=== PATIENT | female | born 1945 | race Caucasian/White ===

== ENCOUNTER 2020-01-17 04:51 | Emergency (ER) | payer MEDICARE, SELFPAY ==
[2020-01-17 05:00] VITALS: BP 148/85; PULSE 93; RESP 18; TEMP 36.7; O2SAT 98
--- NOTE | 2020-01-17 05:05 | ED.NECK ---
HPI - Neck Pain/Injury General Chief Complaint: Neck Pain/Injury Stated Complaint: neck pain Time Seen by Provider: 01/17/20 05:00 Source: patient and old records reviewed Mode of arrival: ambulatory Limitations: no limitations History of Present Illness HPI Narrative: Patient is a 74-year-old female who presents to the emergency department with complaints of right-sided neck pain. Patient states she had onset of symptoms when getting up out of her recliner yesterday evening. Patient describes it as a spasm and it is worse with movement. She tried taking Aleve at home without much relief. Patient denies any known trauma. She specifically denies any activities where she was holding her head to the side or looking in a downward position. Patient had not been sleeping in her recliner, just simply watching television. Patient denies any other symptoms aside from chronic cough and shortness of breath which she has had for some time. Patient is being treated for recurrence of lung cancer. complaint: neck pain Onset (ago): hour(s) Place: home Radiation: right lateral Quality: spasming Exacerbating factors: movement of neck Associated symptoms: none Treatments prior to arrival: naproxen Related Data Allergies Allergy/AdvReac Type Severity Reaction Status Date / Time No Known Allergies Allergy Unverified 12/08/19 15:47 Review of Systems Review of Systems: All systems reviewed & are unremarkable except as noted in HPI and below Constitutional: Constitutional: Denies fever(s) Cardiovascular: Cardiovascular: Denies chest pain Respiratory: Respiratory: Reports cough and Reports dyspnea PMFSH Past Medical History Medical History (Updated 01/17/20 @ 05:59 by Kandy Feldman MD) Hyperlipidemia Hypertension Recurrent adenocarcinoma of right lung Surgical History Surgical History (Updated 01/17/20 @ 05:18 by Kandy Feldman MD) History of lobectomy of lung Right lower lobe History of total left knee replacement Family History Family History (Updated 06/18/18 @ 11:12 by DOCTOR UNKNOWN) Mother Patient's mother is in good health Father Malignant neoplasm of prostate Social History Social History Smoking status: Never smoker Alcohol intake: current Gender identity (if verbalized by the patient): Female Exam Const: General: cooperative, no acute distress and alert Nutritional Appearance: well nourished Orientation/consciousness: patient oriented x3 Limitations: no limitations HENMT: Mouth: Yes lip normal and Yes moist mucous membranes Resp: Effort & Inspection: normal respiratory effort Auscultation: clear to auscultation bilaterally Cardio: Rate: regular rate Rhythm: regular rhythm Back/Spine/Pelvis: Cervical Spine: cervical muscular tenderness (Right paraspinal muscles), pain with cervical ROM, cervical spasm and cervical ROM abnormal (Limited ability to turn head, particularly towards the left) Skin: General skin exam: normal color Neuro: General: patient oriented x3 Cognition (Neuro): normal cognition Speech: normal speech Extrem: General: normal to inspection, full ROM and no clubbing, cyanosis or edema Psych: Mental Status: mental status grossly normal Affect: normal affect Attitude: cooperative Course Course Emergency Course: Patient given Valium in the ED. Will discharge home with short course of muscle relaxer to take as needed. Advised primary care follow-up Vital Signs Vital signs: Vital Signs Temperature 98.1 F 01/17/20 05:00 Pulse Rate 93 01/17/20 05:00 Respiratory Rate 18 01/17/20 05:00 Blood Pressure 148/85 H 01/17/20 05:00 Pulse Oximetry 98 01/17/20 05:00 Temperature 98.1 F 01/17/20 05:00 Pulse Rate 93 01/17/20 05:00 Respiratory Rate 18 01/17/20 05:00 Blood Pressure 148/85 H 01/17/20 05:00 Pulse Oximetry 98 01/17/20 05:00 Critical Care Time Critical Care Time Critical Care Time: No Discharge Plan Disch
[2020-01-17 06:10] VITALS: BP 132/77; PULSE 72; RESP 18; O2SAT 98
== END 2020-01-17 06:10 | disposition home or self-care (01) ==
PROVIDERS: Emergency Provider Emergency Medicine; PCP Internal Medicine
DX: M62.838 Other muscle spasm (principal); C34.91 Malignant neoplasm of unspecified part of right bronchus or lung; E78.5 Hyperlipidemia, unspecified; I10 Essential (primary) hypertension; Z90.2 Acquired absence of lung [part of]; Z96.652 Presence of left artificial knee joint
CPT/HCPCS: 96372; 99283; J3360

== ENCOUNTER 2020-05-15 17:36 | Emergency (ER) | payer MEDICARE, SELFPAY ==
[2020-05-15] VITALS (11 sets, daily range): BP systolic 122–172; BP diastolic 57–94; PULSE 86–90; RESP 18–31; TEMP 36.8–37.1; O2SAT 94–99
--- NOTE | ~2020-05-15 | CT_ITS ---
EXAMINATION: CTA chest PE protocol DATE: 05/15/2020 18:40 INDICATION: Right-sided chest pain. Shortness of breath. TECHNIQUE: Computed tomography angiography (CTA) of the chest was performed with 100 mL Omnipaque-350 intravenous contrast timed to evaluate the pulmonary arteries. Coronal maximum intensity projection 3D-reconstructions were created by the technologist. Automated exposure control and iterative reconst ruction technique were employed. Exam dose: 357.67 mGy-cm total exam DLP. COMPARISON: 10/14/2010 2 view chest FINDINGS: There is a huge irregular mass density involving the right lower lobe, extending to the rig ht upper lobe and right hilum, invading the main right pulmonary artery, middle lobe artery, largely occluding the right lower lobe pulmonary artery, with minimal pulmonary artery flow to the right lowe r lobe. There are innumerable satellite pulmonary nodules around the periphery of this huge mass as w ell as multiple left lung metastatic nodules measuring up to 1.8 cm. Normal heart size. No pericardial effusion. No pleural effusion is evident. No pneumothorax. Normal morphology of the adrenal glands. Multiple hepatic metastatic lesions are suggested. Moderate size hiatal hernia. Degenerative changes of the thoracic and lumbar spine. No suspicious osteolytic or osteoblastic lesio ns are noted. IMPRESSION: Huge malignant right lung mass involving right upper and particularly right lower lobe, with hilar invasion, main right pulmonary artery and right lower and middle lobe pulmonary artery inv asion, extensive right and left lung metastases Reviewed, dictated and finalized at [facility]. Reviewed, dictated and finalized at [facility]. IMPRESSION: Huge malignant right lung mass involving right upper and particula rly right lower lobe, with hilar invasion, main right pulmonary artery and righ t lower and middle lobe pulmonary artery invasion, extensive right and left mingo g metastases
--- NOTE | 2020-05-15 17:38 | ECG_ITS ---
Measurements Intervals [place] Rate: 84 P: 21 CT: 138 QRS: -8 QRSD: 90 T: 17 QT: 345 QTc: 410 Interpretive Statements SINUS RHYTHM VOLTAGE CRITERIA FOR LVH BASELINE ARTIFACT- I, II, AVR, V2 BORDERLINE ECG Electronically Signed On 05-16-2020 7:49:05 CDT by Art Lockwood D.O.
[2020-05-15 18:08] LABS: Basophils Percent Auto 0.3 % (0.2-1.2); Eosinophils Percent Auto 0.1 % (0-4.4); Hematocrit 26.5 % (37.0-47.0); Hemoglobin 8.7 g/dL (12.0-15.0); Immature Granulocyte Absolute 0.12 K/mm3 (0.00-0.031); Immature Granulocyte Percent A 1.8 % (0-0.5); Immature Platelet Fraction Pct 5.6 % (0.9-11.2); Lymphocytes Absolute Auto 0.88 K/mm3 (0.9-3.2); Lymphocytes Percent Auto 13.2 % (18.3-44.2); Mean Corpuscular HGB Conc 32.8 g/dl (32-36); Mean Corpuscular Hemoglobin 31.3 pg (26-34); Mean Corpuscular Volume 95.3 fl (80-100); Monocytes Absolute Auto 0.2 K/mm3 (0.1-0.6); Monocytes Percent Auto 3.3 % (2.6-8.5); Neutrophils Absolute Auto 5.4 K/mm3 (1.3-6.7); Neutrophils Percent Auto 81.3 % (45.5-73.1); Nucleated Red Blood Cells Absolute Auto 0.1 K/mm3 (0.0-0.012); Nucleated Red Blood Cells Perc 0.7 % (0.0-0.2); Red Blood Count 2.78 M/mm3 (4.2-5.4); White Blood Count 6.7 K/mm3 (4.5-10.0)
[2020-05-15 18:19] LABS: Anion Gap 7 mmol/L (8-16); Blood Urea Nitrogen 28 mg/dL (7-17); Calcium 9.4 mg/dL (8.4-10.2); Carbon Dioxide 26 mmol/L (22-30); Chloride 99 mmol/L (98-107); Estimated CRCL calculation 54 ml/min; Estimated Glomerular Filt Rate > 60; Glucose 125 mg/dL (65-105); Potassium 4.7 mmol/L (3.4-5.0); Sodium 132 mmol/L (137-145)
[2020-05-15 18:24] LABS: Platelet Count Result 12 k/mm3 (150-375)
--- NOTE | 2020-05-15 20:07 | ED.GENADULT ---
HPI - General Adult General Chief complaint: Shortness of Breath/Dyspnea Stated complaint: difficulty breathing Time Seen by Provider: 05/15/20 17:43 Source: patient and family Mode of arrival: ambulatory Limitations: no limitations History of Present Illness HPI narrative: 74-year-old with a history of lung CA, thrombocytopenia drug-induced, PE on Lovenox here with complaints of shortness of breath and right-sided chest pain since last few hours. Patient states that she woke up pretty decent few hours later started having pain on the right side of her chest. She denies any fever or chills no unusual cough. She states that she had a platelet transfusion 2 days ago at that time her platelet count was 39. She denies any other complaints at this time. Onset (ago): hour(s) (4) Radiation: non-radiation Severity: moderate Quality: dull Pain Consistency: constant and intermittent Exacerbating factors: none Associated symptoms: denies other symptoms Related Data Home Medications Medication Instructions Recorded Confirmed metoprolol succinate 25 mg 25 mg PO BID 01/20/20 01/20/20 tablet,extended release 24 hr ysusyneuvgad-iateadpq-bzokxmd-folic 1 tablet PO DAILY 01/20/20 01/20/20 acid 400 mcg-vit K1 20 mcg tablet enoxaparin 40 mg SUBCUT HS 05/15/20 prednisone 60 mg PO DAILY 05/15/20 Allergies Allergy/AdvReac Type Severity Reaction Status Date / Time No Known Allergies Allergy Verified 05/15/20 17:37 Review of Systems Review of Systems: All systems reviewed & are unremarkable except as noted in HPI and below Constitutional: Constitutional: Reports no additional constitutional complaints Eyes: Eyes: Reports no additional eye complaints ENT: Reports system reviewed and no additional complaints, except as documented Cardiovascular: Cardiovascular: Reports no additional cardiovascular complaints Respiratory: Respiratory: Reports no additional respiratory complaints Gastrointestinal: Gastrointestinal: Reports no additional gastrointestinal complaints Musculoskeletal: Musculoskeletal: Reports no additional musculoskeletal complaints Neurologic: Reports system reviewed and no additional complaints, except as documented Psychiatric: Psychiatric: Reports no additional psychiatric complaints Endocrine: Endocrine: Reports no additional endocrine complaints Allergic/Immunologic: Allergic/Immunologic: Reports no additional allergic/immunologic complaints FOR[facility]LY [facility] Past Medical History Medical History Hyperlipidemia Hypertension Recurrent adenocarcinoma of right lung Surgical History Surgical History History of lobectomy of lung Right lower lobe History of total left knee replacement Family History Family History Mother Patient's mother is in good health Father Malignant neoplasm of prostate Social History Social History Smoking status: Never smoker Alcohol intake: current Gender identity (if verbalized by the patient): Female Exam Narrative: Exam Narrative: GENERAL: Well-appearing, well-nourished, anxious HEAD: Normocephalic, atraumatic. EYES: PERRLA and EOMI. ENT: Nares clear, no rhinorrhea . Mucous membranes moist. NECK: Supple. CHEST: Clear to auscultation. No respiratory distress. HEART: Regular rate and rhythm. No murmur heard. Normal peripheral pulses. ABDOMEN: Soft, nontender, nondistended, normal active bowel sounds. EXTREMITIES: Normal range of motion. No edema. SKIN: Warm, dry, no rash. NEURO: No focal deficits. Alert and oriented x3. PSYCH: Normal mood and affect. Course Vital Signs Vital signs: Vital Signs Temperature 36.8 C 05/15/20 17:40 Pulse Rate 88 05/15/20 17:40 Respiratory Rate 31 H 05/15/20 17:40 Blood Pressure 145/94 H 05/15/20 17:40 Pulse
[2020-05-15] MEDS: SODIUM CHLORIDE 0.9% IV 250 ML 30 ML IV CONT (21:53)
[2020-05-15] MEDS: TUBING, BLOOD SET 1 EACH XX (21:54)
--- NOTE | 2020-05-15 22:15 | PC.NURSE ---
[facility] called and stated they have no beds available.
--- NOTE | 2020-05-15 23:04 | PC.NURSE ---
Patient report received from CHRISTY Valerio. Assumed care of patient at this time.
[2020-05-15 23:08] LABS: Basophils Percent Auto 0.2 % (0.2-1.2); Hematocrit 23.9 % (37.0-47.0); Hemoglobin 7.9 g/dL (12.0-15.0); Immature Granulocyte Percent A 1.6 % (0-0.5); Mean Corpuscular HGB Conc 33.1 g/dl (32-36); Mean Corpuscular Hemoglobin 32.1 pg (26-34); Mean Corpuscular Volume 97.2 fl (80-100); Mean Platelet Volume 9.6 fl (7.4-10.4); Monocytes Absolute Auto 0.3 K/mm3 (0.1-0.6); Monocytes Percent Auto 4.8 % (2.6-8.5); Neutrophils Absolute Auto 5.1 K/mm3 (1.3-6.7); Neutrophils Percent Auto 79.4 % (45.5-73.1); Nucleated Red Blood Cells Absolute Auto 0.1 K/mm3 (0.0-0.012); Nucleated Red Blood Cells Perc 0.8 % (0.0-0.2); Platelet Count Result 94 k/mm3 (150-375); Red Blood Count 2.46 M/mm3 (4.2-5.4); White Blood Count 6.4 K/mm3 (4.5-10.0)
== END 2020-05-15 23:51 | disposition home or self-care (01) ==
PROVIDERS: Emergency Medicine; Emergency Provider Family Medicine; PCP Internal Medicine
DX: C34.91 Malignant neoplasm of unspecified part of right bronchus or lung (principal); D69.6 Thrombocytopenia, unspecified; E78.5 Hyperlipidemia, unspecified; I10 Essential (primary) hypertension; Z86.711 Personal history of pulmonary embolism; Z79.02 Long term (current) use of antithrombotics/antiplatelets; Z90.2 Acquired absence of lung [part of]; Z96.652 Presence of left artificial knee joint; R94.31 Abnormal electrocardiogram [ECG] [EKG]
CPT/HCPCS: 36415; 36430; 71275; 80048; 85025; 85055; 86850; 86900; 86901; 93005; 96360; 99284; P9036; J7050; Q9967

== ENCOUNTER 2020-05-23 17:46 | Inpatient (IN) | payer MEDICARE, SELFPAY ==
[2020-05-23] VITALS (24 sets, daily range): BP systolic 113–144; BP diastolic 61–104; PULSE 98–133; RESP 16–36; TEMP 37.1–37.9; O2SAT 92–100; BMI 28.8
--- NOTE | ~2020-05-23 | CT_ITS ---
EXAMINATION: CT chest w con DATE: 05/25/2020 10:38 INDICATION: New onset hypoxia, right lung adenocarcinoma TECHNIQUE: Computed tomography (CT) of the chest was performed with 75 mL Omnipaque-350 intravenous c ontrast. Additional 3D reconstructions utilizing coronal maximum intensity projection (MIP) were perf ormed. Automated exposure control and iterative reconstruction technique were employed. The dose-abigail th product was 199.17 mGy-cm. COMPARISON: None FINDINGS: Multiple pulmonary nodules throughout both lungs most numerous in the right lung are becoming conflue nt throughout large portions of the right lower lobe, the adjacent posterior aspect of the right uppe r lobe and separate region at the medial side of the right middle lobe. Mosaic attenuation with scatt ered areas of increased lucency and lungs most prominent in the right middle lobe consistent with air trapping to at least in the right middle lobe may be related to compression of the areas is extend t o the region of consolidation. Suspect previous noted there appears to be invasion of the right main pulmonary artery as well as the ulnar arteries supplying the right middle and lower lobes. Small righ t pleural effusion. No pulmonary edema, pneumothorax or left-sided pleural effusion. Heart size is no rmal. No pericardial effusion. Thoracic aorta is normal in caliber with no dissection. Right hilar ly mphadenopathy as well as enlarged precarinal lymph node measuring 2.1 x 1.8 cm consistent with metast atic disease. Moderate-sized sliding-type hiatal hernia. Again seen are multiple hypodense lesions in the liver, the largest measuring 2.7 cm with fluid attenuation clearly defined margins most likely h epatic cyst. The smaller lesions demonstrate greater than simple fluid attenuation and have more ill- defined margins and are suspicious for metastatic disease. Bilateral mild renal cortical atrophy. The re are a couple 2 mm nonobstructing right renal stones. Mild thoracic dextrocurvature with moderate s pondylosis. There are full bulky osteophytes along the posterior longitudinal ligament contributing t o mild to moderate central canal stenosis at C6-C7 T5-T6, T6-T7, T9-T10 and T12-L1 IMPRESSION: 1. No significant interval change in multiple bilateral pulmonary nodules, more numerous on the right where there are confluent regions the largest occupying the majority of the right lower lobe consist ent with metastatic disease. 2. Small right pleural effusion. 3. Additional likely metastatic disease in the liver and right hilar and mediastinal lymph nodes. 4. Moderate-sized sliding-type hiatal hernia. Reviewed, dictated and finalized at [facility]. IMPRESSION: 1. No significant interval change in multiple bilateral pulmonary nodules, more numerous on the right where there are confluent regions the largest occupying the majority of the right lower lobe consistent with metastatic disease. 2. Small right pleural effusion. 3. Additional likely metastatic disease in the liver and right hilar and medias tinal lymph nodes. 4. Moderate-sized sliding-type hiatal hernia.
--- NOTE | ~2020-05-23 | XR_ITS ---
EXAMINATION: XR chest 1V portable DATE: 05/23/2020 18:18 INDICATION: Shortness of breath. Cough. Fever. Lung cancer. TECHNIQUE: A single frontal view of the chest was obtained. COMPARISON: Chest 2 views 10/14/2010, chest CT 05/15/2020 FINDINGS: There is volume loss of right hemithorax from partial resection of right lower lobe. There are masses involving right mid and lower lung zones. There are scattered nodules in the lungs. No ple ural effusion or pneumothorax. The heart size is normal. There is a moderate-sized hiatal hernia. IMPRESSION: 1. Masses involving right mid and lower lung zones and scattered pulmonary nodules, consistent with m etastatic disease. 2. Moderate-sized hiatal hernia. Reviewed, dictated and finalized at [facility]. IMPRESSION: 1. Masses involving right mid and lower lung zones and scattered pulmonary nodu les, consistent with metastatic disease. 2. Moderate-sized hiatal hernia.
--- NOTE | 2020-05-23 17:56 | ECG_ITS ---
Measurements Intervals [place] Rate: 114 P: 18 DE: 136 QRS: -13 QRSD: 86 T: 13 QT: 304 QTc: 419 Interpretive Statements SINUS TACHYCARDIA VOLTAGE CRITERIA FOR LVH BORDERLINE ST-T WAVE ABNORMALITY- DIFFUSE LEADS BASELINE ARTIFACT- II, AVF ABNORMAL ECG Electronically Signed On 05-24-2020 7:04:19 CDT by Art Lockwood D.O.
--- NOTE | 2020-05-23 17:57 | ED.GENADULT ---
HPI - General Adult General Chief complaint: Shortness of Breath/Dyspnea Stated complaint: SOB Time Seen by Provider: 05/23/20 17:48 Source: patient History of Present Illness HPI narrative: Patient is a 74 y/o female complaining of severe SOB for last 2 day. There is no alleviating or exacerbating factor. She has some cough, but denies chest pain or fever. Of note, she has NSCLC. She received chemo 8-9 weeks ago. Related Data Home Medications Medication Instructions Recorded Confirmed metoprolol succinate 25 mg 25 mg PO BID 01/20/20 01/20/20 tablet,extended release 24 hr pgpiqwvmeodz-lqmzlmot-pmggzns-folic 1 tablet PO DAILY 01/20/20 01/20/20 acid 400 mcg-vit K1 20 mcg tablet enoxaparin 40 mg SUBCUT HS 05/15/20 prednisone 60 mg PO DAILY 05/15/20 Allergies Allergy/AdvReac Type Severity Reaction Status Date / Time No Known Allergies Allergy Verified 05/23/20 17:51 Review of Systems Constitutional: Constitutional: Denies chills, Denies fever(s), Denies headache(s) and Denies weakness Eyes: Eyes: Denies blurry vision ENT: Denies headache(s) and Denies neck pain Cardiovascular: Cardiovascular: Denies chest pain and Reports dyspnea Respiratory: Respiratory: Reports cough and Reports dyspnea Gastrointestinal: Gastrointestinal: Denies abdominal pain, Denies diarrhea, Denies nausea and Denies vomiting Genitourinary: Genitourinary: Denies hematuria and Denies dysuria Musculoskeletal: Musculoskeletal: Denies back pain and Denies neck pain Neurologic: Denies headache(s) and Denies weakness PMFSH Past Medical History Medical History Hyperlipidemia Hypertension Recurrent adenocarcinoma of right lung Surgical History Surgical History History of lobectomy of lung Right lower lobe History of total left knee replacement Family History Family History Mother Patient's mother is in good health Father Malignant neoplasm of prostate Social History Social History Smoking status: Never smoker Alcohol intake: current Gender identity (if verbalized by the patient): Female Exam Const: General: well developed and acute distress Orientation/consciousness: oriented to person, oriented to place, oriented to time and patient oriented x3 HENMT: Head: normocephalic Ears: external ears normal General nose exam: Normal external nose present Eyes: General: appearance normal, both eyes and all related structures Conjunctivae: conjunctivae normal Neck: Neck: normal visual inspection and full ROM Chest: Chest palpation & inspection: normal inspection of the chest and no tenderness Resp: Effort & Inspection: labored and tachypneic Cardio: Rate: tachycardic Rhythm: regular rhythm GI: GI Palp: No abdominal tenderness and Yes Soft to palpation Skin: General skin exam: normal color and turgor normal Neuro: General: oriented to person, oriented to place, oriented to time and patient oriented x3 Cognition (Neuro): normal cognition Extrem: General: normal to inspection, full ROM and no pedal edema Psych: Appearance: grossly normal Mental Status: mental status grossly normal Affect: normal affect Course Consultations Consultation #1: Discussed with ANIVAL Beach, who agrees to admit to Dr. Chowdary. Date: 05/23/20 Time: 18:59 Vital Signs Vital signs: Vital Signs Temperature 37.9 C H 05/23/20 17:48 Pulse Rate 130 H 05/23/20 17:48 Respiratory Rate 24 H 05/23/20 17:48 Blood Pressure 124/104 H 05/23/20 17:48 Pulse Oximetry 92 05/23/20 17:48 Temperature 37.9 C H 05/23/20 17:48 Pulse Rate 102 H 05/23/20 20:01 Respiratory Rate 19 05/23/20 20:01 Blood Pressure 135/79 05/23/20 20:01 Pulse Oximetry 100 05/23/20 20:01 Medical Decision Making Vital Signs Vital Signs:
[2020-05-23 18:26] LABS: Basophils Percent Auto 0.3 % (0.2-1.2); Eosinophils Percent Auto 0.5 % (0-4.4); Hematocrit 27.6 % (37.0-47.0); Hemoglobin 9.4 g/dL (12.0-15.0); Immature Granulocyte Absolute 0.21 K/mm3 (0.00-0.031); Immature Granulocyte Percent A 2.4 % (0-0.5); Immature Platelet Fraction Pct 8.5 % (0.9-11.2); Lymphocytes Absolute Auto 2.26 K/mm3 (0.9-3.2); Mean Corpuscular HGB Conc 34.1 g/dl (32-36); Mean Corpuscular Hemoglobin 31.8 pg (26-34); Mean Corpuscular Volume 93.2 fl (80-100); Monocytes Absolute Auto 0.4 K/mm3 (0.1-0.6); Monocytes Percent Auto 4.7 % (2.6-8.5); Neutrophils Absolute Auto 5.7 K/mm3 (1.3-6.7); Neutrophils Percent Auto 66.1 % (45.5-73.1); Nucleated Red Blood Cells Absolute Auto 0.3 K/mm3 (0.0-0.012); Nucleated Red Blood Cells Perc 3.8 % (0.0-0.2); Red Blood Count 2.96 M/mm3 (4.2-5.4); Red Cell Distribution Width 21.5 % (11.5-14.5); White Blood Count 8.7 K/mm3 (4.5-10.0)
[2020-05-23 18:35] LABS: Platelet Count Result 12 k/mm3 (150-375)
[2020-05-23 18:36] LABS: Alanine Aminotransferase 104 U/L (4-35); Albumin Level 3.3 g/dL (3.5-5.1); Alkaline Phosphatase 221 U/L (38-126); Anion Gap 9 mmol/L (8-16); Anisocytosis 2+ (NORMAL); Aspartate Amino Transferase 87 U/L (14-36); Bilirubin,Total 1.1 mg/dL (0.2-1.3); Blood Urea Nitrogen 26 mg/dL (7-17); Calcium 8.9 mg/dL (8.4-10.2); Carbon Dioxide 24 mmol/L (22-30); Chloride 96 mmol/L (98-107); Estimated CRCL calculation 44 ml/min; Estimated Glomerular Filt Rate 49; Glucose 133 mg/dL (65-105); Platelet Estimate Decreased (Adequate); Potassium 4.4 mmol/L (3.4-5.0); Sodium 129 mmol/L (137-145)
[2020-05-23 18:41] LABS: Lactic Acid Reflex 4.1 mmol/L (0.7-2.1)
[2020-05-23] MEDS: LACTATED RINGERS 1,000 ML 999 ML ×2 (19:04→20:06)
[2020-05-23 21:22] LABS: Reflex Lactic Acid Yes or No Add Lactic
[2020-05-23 22:10] LABS: Lactic Acid 1.5 mmol/L (0.7-2.1)
--- NOTE | 2020-05-23 22:50 | ADMGEN ---
This patient, Maria Del Rosario Young, was admitted to [facility] Surg Room 329-01. Patient/family oriented to hospital policies and general routines including ID bracelet, bed and alarms, visiting hours, pain management, procedures, bathroom and other care routines, personal items, smoking policy, room service/diet, and visiting hours. Valuables list has been completed. Information on how to activate the Rapid Response Team has been discussed. Patient/Family are encouraged to report perceived risks to care and to ask questions if they do not understand what they are told or what they should do.
[2020-05-24] VITALS (23 sets, daily range): BP systolic 97–135; BP diastolic 46–90; PULSE 68–130; RESP 16–22; TEMP 36.3–38.3; O2SAT 95–99
--- NOTE | 2020-05-24 | ECHO_ITS ---
Patient Info Name: Maria Del Rosario Young Age: 74 years : 1945 Gender: Female Ht: 67 in Wt: 186 lbs BSA: 2.02 m2 HR: 92 bpm BP: 162 / 80 mmHg Technical Quality: Good Exam Date: 05/24/2020 4:20 PM Exam Location: [facility] Pulmonary Exam Room: 344 Patient Status: Inpatient Admit Date: 05/23/2020 Staff Ordering Physician: Pao Boston PA-C Treating Plant Supervisor: Angela Campbell RDCS Attending Provider: Pao Boston PA-C Exam Type: CA echo doppler color flow Study Info Indications - pulmonary artery invasion of tumor Complete two-dimensional, color flow and Doppler transthoracic echocardiogram is performed. Summary 1. Complete two-dimensional, color flow and Doppler transthoracic echocardiogram is performed. 2. Left ventricular chamber dimension is normal. 3. Left ventricular systolic function is hyperdynamic, estimated at >70%. 4. The left ventricular diastolic function is grade I diastolic dysfunction. 5. E/e' 7 is not elevated. 6. Left atrial chamber dimension is mildly enlarged. 7. No pulmonary hypertension, estimated pulmonary arterial systolic pressure is 27 mmHg. Left Ventricle E/e' 7 is not elevated. Left ventricular chamber dimension is normal. Left ventricular systolic function is hyperdynamic, estimated at >70%. The left ventricular diastolic function is grade I diastolic dysfunction. Right Ventricle Right ventricular chamber dimension is normal. Right ventricular systolic function is normal. Left Atria Left atrial chamber dimension is mildly enlarged. Right Atria Right atrial chamber dimension is normal. Aortic Valve The aortic valve is trileaflet. There is no aortic valve stenosis. There is no aortic valve regurgitation. Pulmonic Valve There is no pulmonic regurgitation. Mitral Valve There is no mitral valve stenosis. There is no mitral valve regurgitation. Tricuspid Valve There is no tricuspid valve regurgitation. No pulmonary hypertension, estimated pulmonary arterial systolic pressure is 27 mmHg. Pericardium/Pleural There is no pericardial effusion. Inferior Vena Cava Normal inferior vena cava with >50% collapse upon inspiration consistent with normal right atrial pressure, 5 mmHg. Aorta The aortic root size at the sinus of Valsalva is normal. Left Ventricular Outflow Tract Name Value Normal LVOT 2D LVOT Diameter 2.0 cm LVOT Doppler LVOT Peak Gradient 5 mmHg LVOT Mean Gradient 3 mmHg LVOT VTI 22 cm LVOT VTI/AV VTI Ratio 0.7 LVOT Stroke Volume 71 ml LVOT CO 17.0 l/min LVOT CI 8.4 l/min/m2 Pulmonic Valve Name Value Normal PV Doppler PV Peak Gradient 3 mmHg
--- NOTE | 2020-05-24 00:01 | PM.IMHP ---
H&P: HPI History of Present Illness Date/Time: 05/24/20 00:01 Chief complaint: pneumonia, sepsis, thrombytopenia Narrative: This is a 74-year-old female with known history of recurrent right-sided non-small cell lung cancer currently being treated at [facility] and presented to our hospital with a complaint of increased exertional shortness of breath over the past 2 days. The patient reports that she has a chronic productive cough which has not changed recently. She also denies any chest pain, palpitations, fever, chills, wheezing, abdominal pain, nausea, vomiting, diarrhea, or lower extremity swelling. Patient was found to have a fever in the emergency room yesterday. Her last round of chemotherapy was in the middle of March. The patient was evaluated emergency room yesterday. Chest x-ray obtained demonstrated masses involving right mid and lower lung zones and scattered pulmonary nodules, consistent with metastatic disease. routine labs demonstrated significant thrombocytopenia. The patient was treated with IV antibiotics and swab for COVID-19. Review of Systems Review of Systems: All systems reviewed & are unremarkable except as noted in HPI and below PMFSH Past Medical History Medical History Hyperlipidemia Hypertension Recurrent adenocarcinoma of right lung Surgical History Surgical History History of lobectomy of lung Right lower lobe History of total left knee replacement Family History Family History Mother Patient's mother is in good health Father Malignant neoplasm of prostate Social History Social History Smoking status: Never smoker Alcohol intake: never Substance use: never Substance use type: does not use Gender identity (if verbalized by the patient): Female Sexual Orientation (if Verbalized by the Patient): Straight or Heterosexual Spiritual care concerns: No Meds Home Medications and Allergies Home Medications Medication Instructions Recorded Confirmed Type metoprolol succinate 25 mg 25 mg PO BID 01/20/20 05/23/20 History tablet,extended release 24 hr eybxwenyyzrx-bubaufih-wjigtkm-folic 1 tablet PO DAILY 01/20/20 05/23/20 History acid 400 mcg-vit K1 20 mcg tablet enoxaparin 40 mg SUBCUT HS 05/15/20 05/23/20 History prednisone 60 mg PO DAILY 05/15/20 05/23/20 History Allergies Allergy/AdvReac Type Severity Reaction Status Date / Time No Known Allergies Allergy Verified 05/23/20 17:51 Vital Signs Vital Signs - 24 hr 05/23/20 17:48 05/23/20 17:51 05/23/20 17:52 Temperature 37.9 C H Pulse Rate 130 H 133 H 127 H Respiratory Rate 24 H 36 H 34 H Blood Pressure 124/104 H 124/104 H Pulse Oximetry 92 93 92 05/23/20 18:00 05/23/20 18:01 05/23/20 18:15 Temperature Pulse Rate 109 H 110 H Respiratory Rate 33 H 25 H Blood Pressure 116/63 Pulse Oximetry 95 98 98 05/23/20 18:16 05/23/20 18:30 05/23/20 18:31 Temperature Pulse Rate 105 H 104 H Respiratory Rate 18 17 Blood Pressure 126/67 125/68 Pulse Oximetry 99 97 98 05/23/20 18:42 05/23/20 18:45 05/23/20 18:46 Temperature Pulse Rate 106 H 104 H Respiratory Rate 23 H 24 H Blood Pressure 128/83 Pulse Oximetry 100 99 96 05/23/20 19:00 05/23/20 19:01 05/23/20 19:02 Temperature Pulse Rate 103 H 103 H 102 H Respiratory Rate 16 21 H 32 H Blood Pressure 113/65 Pulse Oximetry 97 98 98 05/23/20 19:15 05/23/20 19:16 05/23/20 19:30 Temperature Pulse Rate 102 H 107 H 99 Respiratory Rate 27 H 26 H 25 H Blood Pressure 125/89 Pulse Oximetry 97 98 100 05/23/20 19:31 05/23/20 19:45 05/23/20 19:46 Temperature Pulse Rate 98 100 101 H Respiratory Rate 29 H 30 H 24 H Blood Pressure 119/68 113/66 Pulse Oximetry 100 100 100 05/23
[2020-05-24] MEDS: ACETAMINOPHEN 325 MG TABLET 650 MG PO ×2 (03:00→11:22)
--- NOTE | 2020-05-24 03:34 | PC.NURSE ---
Informed in by emergency department nurse that ordered LR bolus was given but this was not documented in mar. Empty bag of LR was attached to patient IV when she arrived on floor. Bolus not given since I was informed it had previously been given. Did not document bolus in [facility] since I was not the one who gave it.
--- NOTE | 2020-05-24 03:36 | PC.NURSE ---
Recieved order to give 2 units of platelets. Obtained first unit from blood bank. while obtaining vitals before starting first unit patient temperature was 100.5. Dr. Moody informed. Patient received PO acetaminophen Dr. Moody instructed to hold platelets until temperature was reduced. Platelets returned to blood bank. Will continue to monitor temperature and will give platelets when temperature is improved.
[2020-05-24 08:13] LABS: Hematocrit 22.3 % (37.0-47.0); Hemoglobin 7.4 g/dL (12.0-15.0); Mean Corpuscular HGB Conc 33.2 g/dl (32-36); Mean Corpuscular Hemoglobin 31.5 pg (26-34); Mean Corpuscular Volume 94.9 fl (80-100); Mean Platelet Volume 10.7 fl (7.4-10.4); Platelet Count Result 54 k/mm3 (150-375); Red Blood Count 2.35 M/mm3 (4.2-5.4); Red Cell Distribution Width 21.2 % (11.5-14.5); White Blood Count 5.2 K/mm3 (4.5-10.0)
[2020-05-24 08:25] LABS: Potassium 3.8 mmol/L (3.4-5.0)
[2020-05-24 08:32] LABS: Alanine Aminotransferase 92 U/L (4-35); Albumin Level 2.8 g/dL (3.5-5.1); Alkaline Phosphatase 173 U/L (38-126); Anion Gap 4 mmol/L (8-16); Aspartate Amino Transferase 62 U/L (14-36); Bilirubin,Total 0.9 mg/dL (0.2-1.3); Blood Urea Nitrogen 24 mg/dL (7-17); Calcium 8.4 mg/dL (8.4-10.2); Carbon Dioxide 31 mmol/L (22-30); Chloride 98 mmol/L (98-107); Estimated CRCL calculation 50 ml/min; Estimated Glomerular Filt Rate 54; Glucose 94 mg/dL (65-105); Sodium 133 mmol/L (137-145)
[2020-05-24] MEDS: predniSONE 20 MG TABLET 60 MG PO (11:13)
[2020-05-24] MEDS: THERAPEUTIC MULTIVITAMINS/MINERALS TAB (*BKC) 1 TABLET PO (11:13)
[2020-05-24] MEDS: METOPROLOL TARTRATE 25 MG TABLET PO ×2 (11:15→20:05)
[2020-05-24 12:20] LABS: SARS-CoV-2 RNA PCR Negative
--- NOTE | 2020-05-24 12:52 | PM.IMPN ---
Progress Note: A&P Assessment and Plan (1) Sepsis: Qualifiers: Sepsis acute organ dysfunction status: unspecified Sepsis type: sepsis due to unspecified organism Qualified Code(s): A41.9 - Sepsis, unspecified organism Code(s): A41.9 - Sepsis, unspecified organism Status: Acute Assessment and Plan: Supported by fever, tachycardia, and tachypnea. Differential includes right sided pneumonia. Sputum culture and urinary antigens were ordered and are pending. Blood cultures were obtained and are pending. Discussed with Dr. Sanz and will treat with IV cefepime and IV azithromycin. (2) Thrombocytopenia: Code(s): D69.6 - Thrombocytopenia, unspecified Status: Acute Assessment and Plan: She received 2 units of platelets. Repeat platelet count is 54 today. Past hematology/oncology records were reviewed. Thrombocytopenia developed following AMG 650 therapy and did not resume following dexamethasone. She is established with Dr. Adriana Odom at [facility]. She will need to continue outpatient follow-up. Dr. Sanz is following. Management per Dr. Sanz. Discussed with Dr. Sanz and will resume lovenox 40mg SQ today. Monitor platelets closely. (3) Recurrent adenocarcinoma of right lung: Code(s): C34.91 - Malignant neoplasm of unspecified part of right bronchus or lung Status: Chronic Assessment and Plan: Continue oxygen supplementation as needed. Dr. Sanz has been consulted. Continue oncology recommendations. Records from [facility] were reviewed and in the chart. CTA chest 05/15/20 demonstrated huge malignant right lung mass with right main pulmonary artery, middle lobe artery, and large occlusion of the right lower lobe pulmonary artery with minimal pulmonary flow to the right lower lobe. Discussed with Dr. Sanz and will change IV antibiotics to cefepime and azithromycin for broad-spectrum coverage. She was recently hospitalized at [facility] for PE. Order echocardiogram due to pulmonary artery invasion. Discussed with her oncologist, Dr. Acevedo, who has recommended CT chest w contrast. (4) Hypertension: Qualifiers: Hypertension type: unspecified Qualified Code(s): I10 - Essential (primary) hypertension Code(s): I10 - Essential (primary) hypertension Status: Chronic Assessment and Plan: Blood pressures were reviewed and reasonably controlled. Continue metoprolol. Continue to monitor. (5) COVID-19 ruled out: Code(s): Z03.818 - Encounter for observation for suspected exposure to other biological agents ruled out Status: Ruled-out Assessment and Plan: COVID-19 testing was performed and negative. Subjective Date/time seen: 05/24/20 12:52 Mrs. Young is a 74 y.o. female with PMH significant for recurrent right lung adenocarcinoma (followed by Dr. Acevedo at [facility]), thrombocytopenia due to AMG 650 which was discontinued 03/26/20, hypertension, and pulmonary embolism who presented to the emergency department of dyspnea on exertion. She reports persistent dyspnea on exertion and notices that she is tachycardic with activity. She did not notice subjective fevers but was febrile on presentation to the emergency department. She reports chronic cough productive of white to yellow sputum. She denies chest pain and pleuritic pain. She denies nausea, vomiting, and abdominal pain. Bowels are regular. Appetite is normal. She has no voiding concerns. She denies melena, hematochezia, hematuria, and has no other bruising or bleeding concerns. Review of Systems Review of Systems: All systems reviewed & are unremarkable except as noted in HPI and below Exam Narrative: Exam Narrative: General: Very pleasant, well-developed, and well-nourished 74 y.o. female who is lying supine in bed in no acute distress. HEENT: Normocephalic and atraumatic. Conjunctivae without injection or exudate. PERRL. EOMI. Oral mucosa moist. Neck:
[2020-05-24] MEDS: ALBUTEROL SULFATE (*SP) AEROSOL 1 PUFF 2 PUFF INHALATION ×3 (13:55→21:31)
--- NOTE | 2020-05-24 16:31 | PDONCCN ---
HPI - Date of Consult Date/Time: 05/24/20 16:31 Requesting Physician: Pao Boston PA-C Primary Care Provider: Ebenezer Lundy, - Consult Narrative Reason for consult: Metastatic lung cancer Narrative: Maria Del Rosario Young is a 74 year old female This is a pleasant 74-year-old female was diagnosed to have right lower lobe non-small cell lung cancer status post right lower lobe lobectomy in 2010. Patient has subsequent relapse of the disease in 2013 and had received multiple rounds of treatment mainly clinical trials. Her last treatment was in March 2020. According to the patient at that time she was told that due to progressive disease she will not be a candidate for any more treatment and hospice was discussed. Patient now came into the hospital with increasing shortness of breath and found to have thrombocytopenia and pneumonia. She denies any bleeding and bruising. She has been complaining of tiredness and fatigue. She has been complaining of shortness of breath for at least last couple of days duration with some nonproductive cough. He denies any bone pain and headache. Review of Systems - Review of Systems All systems reviewed & are unremarkable except as noted in HPI and bel - Neurologic Denies headache(s), Denies weakness PMFSH Medical History: Medical History (Last Reviewed 05/24/20 @ 04:24 by Ebenezer Moody MD) Hyperlipidemia Hypertension Recurrent adenocarcinoma of right lung Surgical History: Surgical History (Last Reviewed 05/24/20 @ 04:24 by Ebenezer Moody MD) History of lobectomy of lung Right lower lobe History of total left knee replacement Family History: Family History (Last Reviewed 05/24/20 @ 04:24 by Ebenezer Moody MD) Mother Patient's mother is in good health Father Malignant neoplasm of prostate - Social History Social History: Social History (Last Reviewed 05/24/20 @ 04:24 by Ebenezer Moody MD) Gender Identity: Gender identity (if verbalized by the patient): Female Sexual Orientation: Sexual Orientation (if Verbalized by the Patient): Straight or Heterosexual Alcohol Use: Alcohol intake: never Substance Use: Substance use: never Substance use type: does not use Others: Spiritual care concerns: No Smoking Status: Smoking status: Never smoker Meds Home Medications Medication Instructions Recorded Confirmed Type metoprolol succinate 25 mg 25 mg PO BID 01/20/20 05/23/20 History tablet,extended release 24 hr kybfpendvbcs-uuglzjkk-dzegppz-folic 1 tablet PO DAILY 01/20/20 05/23/20 History acid 400 mcg-vit K1 20 mcg tablet enoxaparin 40 mg SUBCUT HS 05/15/20 05/23/20 History prednisone 60 mg PO DAILY 05/15/20 05/23/20 History Allergies Allergy/AdvReac Type Severity Reaction Status Date / Time No Known Allergies Allergy Verified 05/23/20 17:51 Results - Labs CBC & Chem 7: 05/24/20 07:46 05/24/20 07:46 Labs: Short CBC 05/23/20 05/24/20 Range/Units 18:16 07:46 WBC 8.7 5.2 (4.5-10.0) K/mm3 Hgb 9.4 L 7.4 L (12.0-15.0) g/dL Hct 27.6 L 22.3 L (37.0-47.0) % Plt Count 12 L* D 54 L D (150-375) k/mm3 BMP 05/23/20 05/24/20 18:16 07:46 Sodium 129 L 133 L Potassium 4.4 3.8 Chloride 96 L 98 Carbon Dioxide 24 31 H BUN 26 H 24 H Creatinine 1.10 H 1.00 Glucose 133 H 94 Calcium 8.9 8.4 Liver Function 05/23/20 05/24/20 Range/Units 18:16 07:46 Total Bilirubin 1.1 0.9 (0.2-1.3) mg/dL AST 87 H 62 H (14-36) U/L ALT 104 H 92 H (4-35) U/L Alkaline Phosphatase 221 H 173 H (38-126) U/L Albumin 3.3 L 2.8 L (3.5-5.1) g/dL Assessment and Plan - Additional Plan Metastatic non-small cell lung cancer. Patient without any diagnosed in 2010 status post right lower lobe lobectomy. She had progressive disease found in 2013 with right middle lobe involvement. Since then she had received multiple rounds of
[2020-05-24 17:38] LABS: INR 1.1; Partial Thromboplastin Time 21.9 SECONDS (22.3-36.8); Prothrombin Time 14.2 Seconds (11.1-14.7)
[2020-05-24 18:34] LABS: Lactate Dehydrogenase 686 U/L (313-618)
[2020-05-24 19:00] LABS: Iron 53 ug/dL (37-170)
[2020-05-24 19:09] LABS: Percent Iron Saturation 25 % (20-50)
[2020-05-24 19:42] LABS: Folic Acid > 20.0 ng/mL (2.76->20); Vitamin B12 > 1000.0 pg/mL (239-931)
[2020-05-24 22:08] LABS: Ferritin > 2000.00 ng/mL (11.1-264)
[2020-05-25] VITALS (18 sets, daily range): BP systolic 124–143; BP diastolic 60–85; PULSE 72–122; RESP 16–20; TEMP 36.4–37.1; O2SAT 90–96
[2020-05-25 06:28] LABS: Basophils Percent Auto 0.4 % (0.2-1.2); Eosinophils Percent Auto 0.2 % (0-4.4); Immature Granulocyte Absolute 0.08 K/mm3 (0.00-0.031); Immature Granulocyte Percent A 1.7 % (0-0.5); Lymphocytes Absolute Auto 0.81 K/mm3 (0.9-3.2); Lymphocytes Percent Auto 17.3 % (18.3-44.2); Mean Corpuscular HGB Conc 33.2 g/dl (32-36); Mean Corpuscular Hemoglobin 31.3 pg (26-34); Mean Corpuscular Volume 94.4 fl (80-100); Mean Platelet Volume 10.7 fl (7.4-10.4); Monocytes Absolute Auto 0.2 K/mm3 (0.1-0.6); Monocytes Percent Auto 3.8 % (2.6-8.5); Neutrophils Absolute Auto 3.6 K/mm3 (1.3-6.7); Neutrophils Percent Auto 76.6 % (45.5-73.1); Nucleated Red Blood Cells Perc 0.4 % (0.0-0.2); Platelet Count Result 84 k/mm3 (150-375); Red Blood Count 2.14 M/mm3 (4.2-5.4); Red Cell Distribution Width 20.8 % (11.5-14.5); White Blood Count 4.7 K/mm3 (4.5-10.0)
[2020-05-25 06:40] LABS: Anion Gap 4 mmol/L (8-16); Blood Urea Nitrogen 25 mg/dL (7-17); Calcium 8.8 mg/dL (8.4-10.2); Carbon Dioxide 29 mmol/L (22-30); Chloride 99 mmol/L (98-107); Estimated CRCL calculation 55 ml/min; Estimated Glomerular Filt Rate > 60; Glucose 121 mg/dL (65-105); Potassium 4.1 mmol/L (3.4-5.0); Sodium 132 mmol/L (137-145)
[2020-05-25 07:02] LABS: Hematocrit 20.2 % (37.0-47.0); Hemoglobin 6.7 g/dL (12.0-15.0)
[2020-05-25 07:03] LABS: Anisocytosis 2+ (NORMAL); Platelet Estimate Decreased (Adequate)
[2020-05-25] MEDS: ALBUTEROL SULFATE (*SP) AEROSOL 1 PUFF 2 PUFF INHALATION (08:35)
[2020-05-25] MEDS: SODIUM CHLORIDE 0.9% IV 250 ML 30 ML IV CONT (10:44)
[2020-05-25] MEDS: METOPROLOL TARTRATE 25 MG TABLET PO ×2 (11:14→20:27)
[2020-05-25] MEDS: THERAPEUTIC MULTIVITAMINS/MINERALS TAB (*BKC) 1 TABLET PO (11:15)
[2020-05-25] MEDS: predniSONE 20 MG TABLET 60 MG PO (11:15)
--- NOTE | 2020-05-25 12:40 | P.PNIM_ITS ---
Progress Note: A&P Assessment and Plan (1) Sepsis: Qualifiers: Sepsis acute organ dysfunction status: unspecified Sepsis type: sepsis due to unspecified organism Qualified Code(s): A41.9 - Sepsis, unspecified o rganism Code(s): A41.9 - Sepsis, unspecified organism Status: Acute Assessment and Plan: Supported by fever, tachycardia, and tachypnea. Differential includes post obstructive pneumonia from lung mass. * Sputum culture and urinary antigens were ordered and are pending. * Blood cultures were obtained and show no growth at this time. * Continue treat with IV cefepime and IV azithromycin. * Vital signs were stable this morning and she remained afebrile, normal blood pressure, still sinus tachycardia at times, normal respiratory rate and oxygenation on room air * Patient reports feeling better today and she is off oxygen at this time Continue antibiotics, monitoring sputum culture and blood culture. (2) Acute respiratory failure: Code(s): J96.00 - Acute respiratory failure, unspecified whether with hypoxia or hypercapnia Status: Acute Assessment and Plan: acute respiratory failure most likely secondary to underlying pneumonia from post obstruction and lung mass * this morning it was recorded that she was 96% on 2 L via nasal cannula. * Now she is 92% on room air. * She denies any shortness of breath at rest and only become short of breath with exertion and also with her tachycardic heart rate * will continue with antibiotics for pneumonia, start on DuoNeb treatments continue monitoring oxygen saturation when she may need a home oxygen evaluation prior to discharge. (3) Acute anemia: Code(s): D64.9 - Anemia, unspecified Status: Acute Assessment and Plan: Patient H&H showed severe normocytic anemia hemoglobin 6.7 and hematocrit 20%. She was given 1 unit of PRBCs. * Will recheck H&H 1 hour after transfusion given. * Her iron panel, vitamin B12 and folic acid levels were all within normal range. She has no acute GI symptoms related to blood loss. * Inform Dr. Sanz about the patient's change in her H&H and transfusion. His mid-level provider will evaluate her today on the floor. Continue monitoring H&H q.6 hours and transfuse as needed. (4) Thrombocytopenia: Code(s): D69.6 - Thrombocytopenia, unspecified Status: Acute Assessment and Plan: Acute thrombopenia on arrival. She received 2 units of platelets. * Repeat platelet count is 84,000 today. * Past hematology/oncology records were reviewed. Thrombocytopenia developed following AMG 650 therapy and did not resume following dexamethasone. * She is established with Dr. Adriana Odom at [facility]. She will need to continue outpatient follow-up. * Dr. Sanz is following while she is hospitalized here. * Discussed with Dr. Sanz and will resume lovenox 40mg SQ today as long as platelets are greater than 50,000. Appreciate Management per Dr. Sanz. Monitor platelets closely. (5) Recurrent adenocarcinoma of right lung: Code(s): C34.91 - Malignant neoplasm of unspecified part of right bronchus or lung Status: Chronic Assessment and Plan: Continue oxygen supplementation as needed. Dr. Sanz has been consulted. Continue oncology recommendations. Records from [facility] were reviewed and in the chart. CTA chest 05/15/20 demonstrated huge malignant right lung
--- NOTE | 2020-05-25 12:40 | PM.IMPN ---
Progress Note: A&P Assessment and Plan (1) Sepsis: Qualifiers: Sepsis acute organ dysfunction status: unspecified Sepsis type: sepsis due to unspecified organism Qualified Code(s): A41.9 - Sepsis, unspecified organism Code(s): A41.9 - Sepsis, unspecified organism Status: Acute Assessment and Plan: Supported by fever, tachycardia, and tachypnea. Differential includes post obstructive pneumonia from lung mass. Sputum culture and urinary antigens were ordered and are pending. Blood cultures were obtained and show no growth at this time. Continue treat with IV cefepime and IV azithromycin. Vital signs were stable this morning and she remained afebrile, normal blood pressure, still sinus tachycardia at times, normal respiratory rate and oxygenation on room air Patient reports feeling better today and she is off oxygen at this time Continue antibiotics, monitoring sputum culture and blood culture. (2) Acute respiratory failure: Code(s): J96.00 - Acute respiratory failure, unspecified whether with hypoxia or hypercapnia Status: Acute Assessment and Plan: acute respiratory failure most likely secondary to underlying pneumonia from post obstruction and lung mass this morning it was recorded that she was 96% on 2 L via nasal cannula. Now she is 92% on room air. She denies any shortness of breath at rest and only become short of breath with exertion and also with her tachycardic heart rate will continue with antibiotics for pneumonia, start on DuoNeb treatments continue monitoring oxygen saturation when she may need a home oxygen evaluation prior to discharge. (3) Acute anemia: Code(s): D64.9 - Anemia, unspecified Status: Acute Assessment and Plan: Patient H&H showed severe normocytic anemia hemoglobin 6.7 and hematocrit 20%. She was given 1 unit of PRBCs. Will recheck H&H 1 hour after transfusion given. Her iron panel, vitamin B12 and folic acid levels were all within normal range. She has no acute GI symptoms related to blood loss. Inform Dr. Sanz about the patient's change in her H&H and transfusion. His mid-level provider will evaluate her today on the floor. Continue monitoring H&H q.6 hours and transfuse as needed. (4) Thrombocytopenia: Code(s): D69.6 - Thrombocytopenia, unspecified Status: Acute Assessment and Plan: Acute thrombopenia on arrival. She received 2 units of platelets. Repeat platelet count is 84,000 today. Past hematology/oncology records were reviewed. Thrombocytopenia developed following AMG 650 therapy and did not resume following dexamethasone. She is established with Dr. Adriana Odom at [facility]. She will need to continue outpatient follow-up. Dr. Sanz is following while she is hospitalized here. Discussed with Dr. Sanz and will resume lovenox 40mg SQ today as long as platelets are greater than 50,000. Appreciate Management per Dr. Sanz. Monitor platelets closely. (5) Recurrent adenocarcinoma of right lung: Code(s): C34.91 - Malignant neoplasm of unspecified part of right bronchus or lung Status: Chronic Assessment and Plan: Continue oxygen supplementation as needed. Dr. Sanz has been consulted. Continue oncology recommendations. Records from [facility] were reviewed and in the chart. CTA chest 05/15/20 demonstrated huge malignant right lung mass with right main pulmonary artery, middle lobe artery, and large occlusion of the right lower lobe pulmonary artery with minimal pulmonary flow to the right lower lobe. Discussed with Dr. Sanz and will change IV antibiotics to cefepime and azithromycin for broad-spectrum coverage. She was recently hospitalized at [facility] for PE in March o
[2020-05-25] MEDS: ALBUTEROL SULFATE NEB 2.5 MG/0.5 ML INH INHALATION ×2 (13:48→20:57)
[2020-05-25] MEDS: IPRATROPIUM BR 0.02% INH SOLN 0.5 MG/2.5 ML VIAL INHALATION ×2 (13:48→20:57)
[2020-05-25 15:12] LABS: Hematocrit 25.4 % (37.0-47.0); Hemoglobin 8.6 g/dL (12.0-15.0)
--- NOTE | 2020-05-25 17:45 | WPDONCPN ---
Progress Note: A/P - Additional Plan 1. Recurrent lung cancer with suspected mets. Patient was initially diagnosed in 2010, s/p surgery and chemotherapy, then had relapsed disease in 2013, s/p multiple lines of therapy including clinical trials. CT chest today showed multiple bilateral pulmonary nodules, primarily right sided, with right hilar CHAZ, enlarged precarinal lymph node measuring 2.1 x 1.8 cm, and liver lesions with ill-defined margins suspicious for metastasis. Clinically, she looks good/comfortable today. She is not requiring supplemental oxygen currently, O2 sat 95-96% RA today. We will see her as an outpatient to discuss available treatment options, if any, after review of outside records as she is not ready for hospice. 2. Anemia and thrombocytopenia. Could be related to sepsis from possible PNA and/or prior treatment. Hgb nadired at 6.7 today. Iron studies not c/w deficiency, normal B12 and folate, plt AB testing pending to r/o ITP. No obvious signs of active bleeding. She improved to 8.6 after 1U PRBC today. Platelets significantly improved from 12,000 to 84,000 currently after 2U plts on admission. Blood cultures negative to date. Continue to trend. - Time Spent With Patient Total time spent is greater than 50% in coordination of care (as documented) at patient's floor/unit and/or counseling patient: 15 - 25 minutes Subjective Interval history: 74 yo WF who was admitted on 05/24 after presenting with thrombocytopenia (plt douglas 12k on admission), tachycardia (palpitations), fever, and progressive exertional dyspnea suspicious for PNA in the setting of known recurrent lung cancer. COVID negative on 05/23. She remains on IV antibiotics and required 1U PRBC for Hgb 6.7 and 2U plts. She was initially treated for lung cancer with surgery and chemotherapy in 2010 then had relapsed lung cancer in 2013 (under the care of Dr. Salazar then Dr. Acevedo). She is s/p 4+ lines of treatment for relapsed disease, mostly clinical trials, and last treated in March. She was in her usual state of health until 2 days prior to presenting here. Currently, she feels better compared to admission after nebulizers and blood transfusion. She is off supplemental oxygen. She has a mild cough which she attributes to sinus drainage with initial yellow phlegm that is now clear. She has some bruising on her forearms but denies hematuria, melena, hematochezia, or spontaneous epistaxis. She is interested in pursuing treatment if available rather than hospice. She otherwise denies mental status changes, chest pain, hemoptysis, abdominal pain, lymphadenopathy or new bone pain. Review of Systems - Review of Systems All systems reviewed & are unremarkable except as noted in HPI and bel - Neurologic Denies headache(s), Denies weakness Exam Vital signs: Temp Pulse Resp BP Pulse Ox 37.1 C 102 H 16 129/71 96 05/25/20 14:00 05/25/20 14:00 05/25/20 14:00 05/25/20 14:00 05/25/20 14:00 - Constitutional no acute distress - Routine HEENT Exam Head: Present: atraumatic, normocephalic Eye: Present: EOMI, normal appearance - Routine Neck Exam Present: normal inspection - Routine Respiratory Exam Present: decreased breath sounds (RLL with mild crackles) - Routine Cardiovascular Exam Cardiovascular: Present: RRR. Absent: murmur - Routine Abdominal Exam Present: normal bowel sounds, soft. Absent: tenderness - Routine Extremities Exam Comments: No peripheral edema - Routine Skin Exam Present: ecchymosis (bilat forearms) - Routine Neurological Exam Present: alert, oriented X3 PN: Objective Data - Labs CBC & Chem 7: 05/25/20 18:14 05/25/20 05:09 Labs: Laboratory Results - last 24 hr 05/24/20 05/24/20 05/25/20 17:13 17:13 05:09 WBC 4.7 RBC 2.14 L Hgb 6.7 L* Hct 20.2 L* MCV 94.4 MCH 31.3 MCHC 33.2 RDW 20.8 H Plt Count 84 L D MPV 10.7 H Immature Gran % (Auto) 1.7 H Neut % (
[2020-05-25 18:20] LABS: Hematocrit 26.3 % (37.0-47.0); Hemoglobin 8.9 g/dL (12.0-15.0)
[2020-05-25] MEDS: guaiFENesin 12 HR 600 MG TABCR PO (20:27)
[2020-05-25] MEDS: ENOXAPARIN 40 MG/0.4 ML SYRINGE SUB-Q (20:28)
[2020-05-25 21:36] LABS: IFOB Positive Control Positive; Immunochemical Fecal Occult Bl Negative (N)
[2020-05-26] VITALS (10 sets, daily range): BP systolic 130–136; BP diastolic 66–80; PULSE 83–101; RESP 16–20; TEMP 36.9; O2SAT 91–95
[2020-05-26 00:30] LABS: Hemoglobin 8.4 g/dL (12.0-15.0)
[2020-05-26] MEDS: IPRATROPIUM BR 0.02% INH SOLN 0.5 MG/2.5 ML VIAL INHALATION ×2 (02:26→08:26)
[2020-05-26] MEDS: ALBUTEROL SULFATE NEB 2.5 MG/0.5 ML INH INHALATION ×2 (02:26→08:26)
[2020-05-26 06:35] LABS: Basophils Percent Auto 0.4 % (0.2-1.2); Eosinophils Percent Auto 0.2 % (0-4.4); Hematocrit 24.9 % (37.0-47.0); Hemoglobin 8.4 g/dL (12.0-15.0); Immature Granulocyte Absolute 0.14 K/mm3 (0.00-0.031); Immature Granulocyte Percent A 2.5 % (0-0.5); Immature Platelet Fraction Pct 1.5 % (0.9-11.2); Lymphocytes Absolute Auto 1.45 K/mm3 (0.9-3.2); Mean Corpuscular HGB Conc 33.7 g/dl (32-36); Mean Corpuscular Hemoglobin 31.3 pg (26-34); Mean Corpuscular Volume 92.9 fl (80-100); Monocytes Absolute Auto 0.3 K/mm3 (0.1-0.6); Monocytes Percent Auto 4.5 % (2.6-8.5); Neutrophils Absolute Auto 3.7 K/mm3 (1.3-6.7); Neutrophils Percent Auto 66.4 % (45.5-73.1); Nucleated Red Blood Cells Perc 0.5 % (0.0-0.2); Platelet Count Result 76 k/mm3 (150-375); Red Blood Count 2.68 M/mm3 (4.2-5.4); Red Cell Distribution Width 20.5 % (11.5-14.5); White Blood Count 5.6 K/mm3 (4.5-10.0)
[2020-05-26 06:44] LABS: Chloride 100 mmol/L (98-107)
[2020-05-26 06:49] LABS: Anion Gap 5 mmol/L (8-16); Blood Urea Nitrogen 23 mg/dL (7-17); Calcium 9.4 mg/dL (8.4-10.2); Carbon Dioxide 29 mmol/L (22-30); Estimated CRCL calculation 55 ml/min; Estimated Glomerular Filt Rate > 60; Glucose 95 mg/dL (65-105); Sodium 134 mmol/L (137-145)
[2020-05-26] MEDS: THERAPEUTIC MULTIVITAMINS/MINERALS TAB (*BKC) 1 TABLET PO (08:15)
[2020-05-26] MEDS: guaiFENesin 12 HR 600 MG TABCR PO (08:15)
[2020-05-26] MEDS: METOPROLOL TARTRATE 25 MG TABLET PO (08:15)
[2020-05-26] MEDS: predniSONE 20 MG TABLET 60 MG PO (08:16)
--- NOTE | 2020-05-26 12:15 | PM.DS ---
DS: Admitting Diagnosis Admitting Diagnosis Admitting Diagnosis: pneumonia, sepsis, thrombytopenia DS: Discharge Diagnosis Discharge Diagnosis (1) Sepsis: Qualifiers: Sepsis acute organ dysfunction status: unspecified Sepsis type: sepsis due to unspecified organism Qualified Code(s): A41.9 - Sepsis, unspecified organism Code(s): A41.9 - Sepsis, unspecified organism Status: Acute Assessment and Plan: Supported by fever, tachycardia, and tachypnea. Differential includes post obstructive pneumonia from lung mass. Sputum culture shows normal respiratory tract ray. Urinary antigens were ordered and are pending. Blood cultures were obtained and show no growth at this time. Continue treat with IV cefepime and IV azithromycin. Vital signs were stable this morning and she remained afebrile for 48 hrs, normal blood pressure, normal HR with occasoinal sinus tachycardia at times with exertion, normal respiratory rate and oxygenation on room air. Had the nurse walk the patient around the room to check for hypoxia with exertion and her O2 saturation stayed 92-93%. (2) Acute respiratory failure: Code(s): J96.00 - Acute respiratory failure, unspecified whether with hypoxia or hypercapnia Status: Acute Assessment and Plan: acute respiratory failure most likely secondary to underlying pneumonia from post obstruction and lung mass Now she is 95% on room air. She denies any shortness of breath at rest and has improved dyspnea on exertion. will continue with antibiotics for pneumonia upon discharge with Azithromycin for total of 5 days and Levaquin for a total of 10 days of treatment. (3) Acute anemia: Code(s): D64.9 - Anemia, unspecified Status: Acute Assessment and Plan: Patient H&H showed severe normocytic anemia hemoglobin 6.7 and hematocrit 20%. She was given 1 unit of PRBCs. H&H stable at 8.4/24.9% Her iron panel, vitamin B12 and folic acid levels were all within normal range. Stool guiac was negative. Inform Dr. Sanz about the plan for discharge. He understands and agrees with the plan and wants her to follow up in the office early next week and they will check labs. (4) Thrombocytopenia: Code(s): D69.6 - Thrombocytopenia, unspecified Status: Acute Assessment and Plan: Acute thrombopenia on arrival. She received 2 units of platelets. Repeat platelet count is 84,000 today. Past hematology/oncology records were reviewed. Thrombocytopenia developed following AMG 650 therapy and did not resume following dexamethasone. She is established with Dr. Adriana Odom at [facility], but she will not see them anymore and will see Dr. Sanz as an outpatient She will continue Lovenox injections as out patient. (5) Recurrent adenocarcinoma of right lung: Code(s): C34.91 - Malignant neoplasm of unspecified part of right bronchus or lung Status: Chronic Assessment and Plan: Continue oxygen supplementation as needed. Dr. Sanz has been consulted. Continue oncology recommendations. Records from [facility] were reviewed and in the chart. CTA chest 05/15/20 demonstrated huge malignant right lung mass with right main pulmonary artery, middle lobe artery, and large occlusion of the right lower lobe pulmonary artery with minimal pulmonary flow to the right lower lobe. Discussed with Dr. Sanz and will change IV antibiotics to cefepime and azithromycin for broad-spectrum coverage. She was recently hospitalized at [facility] for PE in March of 2020. Echocardiogram showed normal EF greater than 70%, diastolic dysfunction grade 1. No pulmonary hypertension noted. The patient was discussed with her [facility] oncologist, Dr. Acevedo, who has recommend
[2020-05-27 22:52] LABS: Pneumococcal Antigen Urine Not Detected (Not Detected)
--- NOTE | 2020-05-28 09:11 | PC.NURSE ---
Sputum culture shows normal ray
[2020-05-28 16:10] LABS: Legionella pneumophila Ag Ur Not Detected (Not Detected)
--- NOTE | 2020-06-01 14:00 | PC.NURSE ---
Blood cx are negative.
== END 2020-05-26 13:51 | disposition home or self-care (01) | DRG 871 ==
LOC: ANHED 19:26 → ANH3MEDSUR 05-24 07:00
PROVIDERS: Family Medicine; Internal Medicine Hematology & Oncology; Physician Assistant; Admitting Provider Internal Medicine; Emergency Provider Emergency Medicine; PCP Internal Medicine; Visit Provider Physician Assistant
DX: A41.9 Sepsis, unspecified organism (principal); J96.00 Acute respiratory failure, unspecified whether with hypoxia or hypercapnia; J18.9 Pneumonia, unspecified organism; C77.1 Secondary and unspecified malignant neoplasm of intrathoracic lymph nodes; C34.91 Malignant neoplasm of unspecified part of right bronchus or lung; C78.7 Secondary malignant neoplasm of liver and intrahepatic bile duct; D69.6 Thrombocytopenia, unspecified; Z20.828 Contact with and (suspected) exposure to other viral communicable diseases; D64.9 Anemia, unspecified; K44.9 Diaphragmatic hernia without obstruction or gangrene; I10 Essential (primary) hypertension; E78.5 Hyperlipidemia, unspecified; Z96.652 Presence of left artificial knee joint; Z79.899 Other long term (current) drug therapy; Z85.118 Personal history of other malignant neoplasm of bronchus and lung; Z90.2 Acquired absence of lung [part of]
CPT/HCPCS: 36415; 36430; 71045; 71260; 80048; 80053; 82274; 82607; 82728; 82746; 83540; 83550; 83605; 83615; 85014; 85018; 85025; 85027; 85055; 85610; 85730; 86023; 86850; 86900; 86901; 86923; 87040; 87070; 87205; 87449; 87635; 87899; 93005; 93306; 94640; 94667; 99285; A9270; C9803; J0456; J0692; J0696; J1650; J7050; J7120; J7512; P9016; P9034; Q9967; U0003

== ENCOUNTER 2020-05-27 09:42 | Outpatient (CLI) | payer MEDICARE, SELFPAY ==
[2020-05-27 10:46] LABS: Hematocrit 29.1 % (37.0-47.0); Hemoglobin 9.4 g/dL (12.0-15.0); Immature Platelet Fraction Pct 2.4 % (0.9-11.2); Mean Corpuscular HGB Conc 32.3 g/dl (32-36); Mean Corpuscular Hemoglobin 30.1 pg (26-34); Mean Corpuscular Volume 93.3 fl (80-100); Platelet Count Result 67 k/mm3 (150-375); Red Blood Count 3.12 M/mm3 (4.2-5.4); White Blood Count 6.2 K/mm3 (4.5-10.0)
[2020-05-27 10:57] LABS: Band Neutrophils Percent 10 % (0-6); Lymphocytes Absolute Manual 1.48 K/mm3 (1.1-4.5); Metamyelocytes Percent 1 %; Monocytes Absolute Manual 0.24 K/mm3 (0.1-0.90); Monocytes Percent Manual 4 % (3-9); Neutrophils Percent Manual 61 % (46-73); Platelet Estimate Decreased (Adequate); Total Cells Counted 100
[2020-05-27 15:10] LABS: Alanine Aminotransferase 75 U/L (4-35); Albumin Level 3.4 g/dL (3.5-5.1); Alkaline Phosphatase 198 U/L (38-126); Anion Gap 6 mmol/L (8-16); Aspartate Amino Transferase 48 U/L (14-36); Blood Urea Nitrogen 30 mg/dL (7-17); Calcium 9.7 mg/dL (8.4-10.2); Carbon Dioxide 27 mmol/L (22-30); Chloride 101 mmol/L (98-107); Estimated Glomerular Filt Rate > 60; Glucose 87 mg/dL (65-105); Potassium 4.4 mmol/L (3.4-5.0); Sodium 134 mmol/L (137-145)
== END 2020-05-27 09:43 | disposition home or self-care (01) ==
PROVIDERS: PCP Internal Medicine; Visit Provider Internal Medicine Hematology & Oncology
DX: C34.31 Malignant neoplasm of lower lobe, right bronchus or lung (principal)
CPT/HCPCS: 36415; 80053; 85025; 85055; 86022

== ENCOUNTER 2020-06-01 12:02 | Outpatient (CLI) | payer MEDICARE, SELFPAY ==
--- NOTE | ~2020-06-01 | PE_ITS ---
EXAMINATION: PET skull to mid thigh DATE: 06/01/2020 14:10 INDICATION: Malignant neoplasm of the left lower lobe. The right lung TECHNIQUE: Blood glucose level was 83 mg/dL. 10.194 mCi of 18-fluorodeoxyglucose (18-FDG) was adminis tered i.v. Low dose computed tomography (CT) images were acquired from the base of the brain to the p roximal thighs for attenuation correction and anatomic localization. Positron emission tomography (PE T) images were acquired in the same distribution beginning 65 minutes after injection. The dose-lengt h product (DLP) was 611.73 mGy-cm. COMPARISON: 05/25/2020 FINDINGS: Head/neck: Mild FDG uptake at the level of the vocal cords without suspicious CT correlate is likely physiologic. Chest: A confluent mass and nodules occupy much of the right lower lobe and involve a significant por tion of the right middle lobe. Confluent masses also seen medially in the right upper lobe. There are multiple nodules scattered throughout all lobes of the lungs. All but the smallest lung nodules demo nstrate abnormal FDG uptake. The confluent masses of the right lung also demonstrate abnormal FDG upt juan. SUV max the right lower lobe is 24.6. The heart size is normal. There is a pathologically enlarg ed right lower paratracheal lymph node without abnormal FDG uptake. No pleural effusion or pneumothor ax is identified. There is a moderate-sized sliding hiatal hernia. Abdomen/pelvis/proximal thighs: A 2.4 cm low-attenuation area in the left hepatic lobe does not demon strate FDG activity, possibly treated metastasis. There is a 2.3 cm hypoattenuating mass of the right hepatic lobe with abnormal FDG uptake and SUV max of 14. Additional smaller areas of abnormal FDG up take in the right hepatic lobe, better appreciated on the comparison CT examination with intravenous contrast, are also suspicious for metastatic disease. The spleen, pancreas, gallbladder, and adrenal glands are normal. The kidneys are unremarkable. There is calcified atherosclerosis of the aorta and many of the other arteries. No pathologically enlarged abdominal or pelvic lymph nodes are identified . Musculoskeletal: There is severe cervical, thoracic, and lumbar spondylosis. IMPRESSION: 1. Confluent masses of the right lung and nodules scattered throughout all lobes of the lungs with ab normal FDG uptake, consistent with metastatic lung cancer. 2. Liver masses with abnormal FDG uptake, consistent with metastatic disease. Reviewed, dictated and finalized at location A. IMPRESSION: 1. Confluent masses of the right lung and nodules scattered throughout all lobe s of the lungs with abnormal FDG uptake, consistent with metastatic lung cancer . 2. Liver masses with abnormal FDG uptake, consistent with metastatic disease.
[2020-06-01 12:28] LABS: Glucose Point of Care 83 (65-105)
== END 2020-06-01 12:03 | disposition home or self-care (01) ==
PROVIDERS: PCP Internal Medicine; Visit Provider Internal Medicine Hematology & Oncology
DX: C34.31 Malignant neoplasm of lower lobe, right bronchus or lung (principal); R16.0 Hepatomegaly, not elsewhere classified
CPT/HCPCS: 78815; A9552

== ENCOUNTER 2020-06-11 10:26 | Inpatient (IN) | payer MEDICARE, OTHER, SELFPAY ==
[2020-06-11] VITALS (22 sets, daily range): BP systolic 103–162; BP diastolic 43–86; PULSE 87–113; RESP 16–21; TEMP 36.1–37.1; O2SAT 95–100; BMI 28.3
--- NOTE | ~2020-06-11 | XR_ITS ---
EXAMINATION: XR chest 2V DATE: 06/12/2020 16:34 INDICATION: Right lung crackles and cough TECHNIQUE: PA and lateral views of the chest were obtained. COMPARISON: Chest radiograph dated 05/23/[address] dated 05/25/2020 FINDINGS: Again seen are scattered bilateral pulmonary nodules consistent with metastatic disease. Large region of consolidation with decreasing aeration in the right mid to lower lung zone. Right-sided pleural e ffusion not excludable. No pneumothorax, pulmonary edema or left-sided pleural effusion. Right heart border remains obscured with normal heart size and prior CT. Moderate thoracolumbar spondylosis. Visu alized bones and soft tissues are unremarkable. IMPRESSION: 1. Worsening airspace disease in the right mid to lower lung which could represent rapid progression of lung cancer and/or worsening superimposed pleural effusion, atelectasis or pneumonia. 2. Smaller more discrete scattered pulmonary nodules in the remainder of the lungs consistent with me tastatic disease. Reviewed, dictated and finalized at location A. IMPRESSION: 1. Worsening airspace disease in the right mid to lower lung which could repres ent rapid progression of lung cancer and/or worsening superimposed pleural effu linda, atelectasis or pneumonia. 2. Smaller more discrete scattered pulmonary nodules in the remainder of the abdulkadir ngs consistent with metastatic disease.
[2020-06-11] MEDS: methylPREDNISolone SOD SUCC 125 MG VIAL 60 MG IV PUSH (10:53)
--- NOTE | 2020-06-11 10:55 | ED.GENADULT ---
HPI - General Adult General Chief complaint: Recheck/Abnormal Lab/Rx Stated complaint: low blood count Time Seen by Provider: 06/11/20 10:30 Source: RN notes reviewed History of Present Illness HPI narrative: Patient presents emergency department from Dr. siu office for anemia. Patient with a history of lung cancer, her only on chemotherapy. The patient was supposed to be starting immunotherapy today for low blood count and when had gone to the office today when she had had blood work drawn that showed the patient to have a hemoglobin of 5.1 and platelet count of 8. Patient was directed to come the emergency department for further evaluation. Per Dr. Nunez the patient is had a history of thrombocytopenia and been on prednisone 60 mg daily and had stopped this 1 week ago. The patient is currently on heparin daily for a pulmonary embolism diagnosed in March. The patient does note that she has been having weakness and shortness of breath with exertion. She denies any fevers or chills chest pain abdominal pain or any other symptoms. Denies any blood in her stool Related Data Home Medications Medication Instructions Recorded Confirmed metoprolol succinate 25 mg 25 mg PO BID 01/20/20 06/11/20 tablet,extended release 24 hr hfvvdxazzdfw-ziqztkmf-arzvfet-folic 1 tablet PO DAILY 01/20/20 06/11/20 acid 400 mcg-vit K1 20 mcg tablet enoxaparin 40 mg SUBCUT HS 05/15/20 06/11/20 guaifenesin [Mucus Relief ER] 600 mg PO DAILY 06/11/20 06/11/20 Allergies Allergy/AdvReac Type Severity Reaction Status Date / Time No Known Allergies Allergy Verified 06/11/20 10:44 Review of Systems Review of Systems: Narrative: Gen.: Denies fevers or chills ENT: Denies congestion Respiratory: Reports shortness of breath with exertion CV: Denies chest pain or palpitations GI: Denies abdominal pain nausea, emesis or diarrhea Musculoskeletal: Denies back pain or muscle pain Neuro: Denies numbness, tingling, weakness or focal weakness Skin: Denies rash Except as documented, all other systems reviewed and negative PMFSH Past Medical History Medical History Hyperlipidemia Hypertension Recurrent adenocarcinoma of right lung Social History Social History Smoking status: Never smoker Alcohol intake: never Substance use: never Substance use type: does not use Gender identity (if verbalized by the patient): Female Spiritual care concerns: No Exam Narrative: Exam Narrative: APPEARANCE: No acute distress, nontoxic, resting in bed EYES: EOMI HEENT: Normocephalic, atraumatic, OMM RESPIRATORY: No respiratory distress Clear to auscultation bilaterally with no rhonchi wheezing or rales. CARDIOVASCULAR: Regular rate and rhythm without murmurs rubs or gallops. ABDOMINAL: Soft, nontender, nondistended, no rebound or guarding MUSCULOSKELETAl: Moves all extremities. No clubbing, cyanosis or edema. NEURO: Awake and alert. Following commands, speech normal, no focal deficits SKIN:: Warm, dry. No rashes lesions or abrasions PSYCHIATRIC: Normal affect/mood, Course Course Emergency Course: Reviewed outpatient lab work Discussed with Dr. Sanz station work-up. He did draw additional blood work in his office to work-up anemia. He request that this time the patient received 2 units of PRBCs. 2 units of platelets and received Solu-Medrol 60 mg x 1 now followed by prednisone 60 mg daily and will consult as an inpatient. States the patient's Lovenox is to be stopped Discussed Dr. Marti presentation work-up. Agrees with admission at this time Discussed with patient and family results of workup and diagnosis. Discussed need for admission. Patient and family understand and agree to current treatment plan Vital Signs Vital signs: Vital Signs Temperature 97.8 F 06/11/20 10:37 Pulse Rate 94 06/11/20 10:37 Respiratory Rate 21 H 10/0
[2020-06-11 11:12] LABS: Alanine Aminotransferase 49 U/L (4-35); Albumin Level 3.4 g/dL (3.5-5.1); Alkaline Phosphatase 240 U/L (38-126); Aspartate Amino Transferase 52 U/L (14-36)
[2020-06-11 11:29] LABS: INR 1.1; Prothrombin Time 14.2 Seconds (11.1-14.7)
[2020-06-11 11:30] LABS: Partial Thromboplastin Time 35.3 SECONDS (22.3-36.8)
--- NOTE | 2020-06-11 11:44 | PC.NURSE ---
This patient, Maria Del Rosario Young, was admitted to IMU Room 206-02. Patient/family oriented to hospital policies and general routines including ID bracelet, bed and alarms, visiting hours, pain management, procedures, bathroom and other care routines, personal items, smoking policy, room service/diet, and visiting hours. Valuables list has been completed. Information on how to activate the Rapid Response Team has been discussed. Patient/Family are encouraged to report perceived risks to care and to ask questions if they do not understand what they are told or what they should do.
[2020-06-11] MEDS: SODIUM CHLORIDE 0.9% IV 250 ML 30 ML IV CONT ×2 (13:00→16:49)
--- NOTE | 2020-06-11 13:30 | PM.IMHP ---
H&P: HPI History of Present Illness Date/Time: 06/11/20 13:30 Chief complaint: Abnormal labs. 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 The patient is known to the hospitalist service with a recent admission from May 23 to May 26, 2020 at which time she was treated for what sounds like postobstructive pneumonia in addition to profound anemia and thrombocytopenia. She received transfusions of packed red blood cells and platelets and was discharged on steroids for presumed ITP. It is also noted that she was diagnosed with pulmonary embolism in March 2020 and was on low-dose enoxaparin, however it is my understanding that the thrombocytopenia was not felt to be heparin-induced. Most recent chest CT showed resolution of the pulmonary embolism and enoxaparin was discontinued. She has not had any treatment for her lung cancer since March 2020 due to ongoing issues with thrombocytopenia. In any regard, she completed her course of prednisone and was set to begin treatment with an immunotherapy agent today however her CBC once again demonstrated profound anemia and thrombocytopenia. With further questioning, she reports progressive weakness since spring, around the same time that she was started on a clinical trial. Over the past couple of weeks she has been progressively more fatigued with occasional lightheadedness with position changes and bending forward in addition to dyspnea on exertion. Daughter also notes that she appears quite pale. She has had mild epistaxis but denies gingival bleeding, hematemesis, melena, hematochezia, and hematuria. She denies fever, chills, sweats, cold and flu symptoms, chest pain, pleuritic pain, palpitations, resting shortness of breath, orthopnea, PND, lower extremity edema, vomiting, diarrhea, and dysuria. Review of Systems Review of Systems: Narrative: Twelve systems were reviewed with pertinent positives and negatives as per HPI. Weight has been pretty stable. She has occasional nausea but no vomiting. She has had mild postnasal drip recently in a tickle in her throat. No significant cough. She denies sick contacts and recent travel. Except as documented, all other systems were reviewed and are negative. [facility] Past Medical History Medical History (Updated 06/11/20 @ 14:21 by Jackie Pollard PA-C) Anemia With history of blood and platelet transfusions. Bone marrow biopsy reportedly unremarkable in summer 2019. Hyperlipidemia Hypertension Pulmonary embolism (~03/2020) Recurrent adenocarcinoma of right lung Initially diagnosed in November 2010, T2 N2 M0 adenocarcinoma of the right lower lung, status post right lower lobectomy in December 2010 with adjuvant chemotherapy. She had relapse of disease in July 2014 and she has been on several chemotherapy agents and clinical trials per Dr. Acevedo at [place]. PET scan dated 06/01/2020 showed confluent masses of the right lung and nodules scattered throughout all lobes of the lungs with abnormal FDG uptake, consistent with metastatic lung cancer in addition to liver masses with abnormal FDG uptake, consistent with metastatic disease. She is now being followed by Dr. Yvno huerta at [place]. Surgical History Surgical History (Updated 06/11/20 @ 14:05 by Jackie Pollard PA-C) History of lobectomy of lung (~12/2010) Right lower lobe. History of total left knee replacement Family History Family History Mother Patient's mother is in good health Father Malignant neoplasm of prostate Social History Social History (Updated 06/11/20 @ 14:07 by Jackie Pollard PA-C) Social History: Surrogate decision maker: [place] Hannah, spouse. Code status: Full code. [place]
[2020-06-11] MEDS: TUBING, BLOOD PLUM PUMP TUBING 1 EACH XX (14:19)
--- NOTE | 2020-06-11 15:55 | PDONCCN ---
HPI - Date of Consult Date/Time: 06/11/20 15:55 Requesting Physician: Estrada Marti MD Primary Care Provider: Ebenezer Lundy, DO - Consult Narrative Reason for consult: Metastatic non-small cell lung cancer Narrative: Maria Del Rosario Young is a 74 year old female This is a 74-year-old pleasant female who was originally diagnosed with early stage non-small cell cancer 2010 and had right lower lobe lobectomy done. Subsequently she developed metastatic disease with bilateral lung involvement. She received multiple rounds of chemotherapy and the last treatment was a trial drug AMG 650 which was discontinued in April 2020 due to thrombocytopenia. She came into the office today to start immunotherapy with nivolumab. Labs were performed that showed hemoglobin of 5.1 and platelet of 8000. She has been complaining of tiredness and fatigue. She denies any bleeding and bruising. Patient was also on Lovenox for pulmonary embolism. She just completed steroid taper 4 days ago which she was on for thrombocytopenia. She denies any other complaint. Review of Systems - Review of Systems All systems reviewed & are unremarkable except as noted in [facility] and [facility] Medical History: Medical History (Last Updated 06/11/20 @ 14:19 by Jackie Pollard PA-C) Anemia With history of blood and platelet transfusions. Bone marrow biopsy reportedly unremarkable in summer 2019. Hyperlipidemia Hypertension Pulmonary embolism Onset Date: ~03/2020 Recurrent adenocarcinoma of right lung Initially diagnosed in November 2010, T2 N2 M0 adenocarcinoma of the right lower lung, status post right lower lobectomy in December 2010 with adjuvant chemotherapy. She had relapse of disease in July 2014 and she has been on several chemotherapy agents and clinical trials per Dr. Acevedo at [place]. PET scan dated 06/01/2020 showed confluent masses of the right lung and nodules scattered throughout all lobes of the lungs with abnormal FDG uptake, consistent with metastatic lung cancer in addition to liver masses with abnormal FDG uptake, consistent with metastatic disease. She is now being followed by Dr. Yvon huerta at [place]. Surgical History: Surgical History (Last Updated 06/11/20 @ 14:05 by Jackie Pollard PA-C) History of lobectomy of lung Onset Date: ~12/2010 Right lower lobe. History of total left knee replacement Family History: Family History (Last Reviewed 06/11/20 @ 14:06 by Jackie Pollard PA-C) Mother Patient's mother is in good health Father Malignant neoplasm of prostate - Social History Social History: Social History (Last Updated 06/11/20 @ 14:07 by Jackie Pollard PA-C) Gender Identity: Gender identity (if verbalized by the patient): Female Alcohol Use: Alcohol intake: never Substance Use: Substance use: never Substance use type: does not use Others: Spiritual care concerns: No Oppucation/Education: Occupation/Education: retired Smoking Status: Smoking status: Never smoker Meds Home Medications Medication Instructions Recorded Confirmed Type metoprolol succinate 25 mg 25 mg PO BID 01/20/20 06/11/20 History tablet,extended release 24 hr ociwxvwizyiz-peilggoy-ncoamow-folic 1 tablet PO DAILY 01/20/20 06/11/20 History acid 400 mcg-vit K1 20 mcg tablet enoxaparin 40 mg SUBCUT HS 05/15/20 06/11/20 History guaifenesin [Mucus Relief ER] 600 mg PO DAILY 06/11/20 06/11/20 History Allergies Allergy/AdvReac Type Severity Reaction Status Date / Time No Known Allergies Allergy Verified 06/11/20 10:44 Results - Labs Labs: Liver Function 06/11/20 Range/Units 10:47 Total Bilirubin 1.0 (0.2-1.3) mg/dL Direct Bilirubin 0.0 (0-0.3) mg/dL AST 52 H (14-36) U/L ALT 49 H (4-35) U/L Alkaline Phosphatase 240 H (38-126) U/L Albumin 3.4 L (3.5-5.1) g/dL Assessment and Plan - Additional Plan Pro
[2020-06-11] MEDS: TUBING, BLOOD PLUM PUMP TUBING 2 EACH XX (16:49)
[2020-06-11] MEDS: METOPROLOL SUCCINATE EXT REL 25 MG TABCR PO (21:27)
[2020-06-11 21:34] LABS: Hematocrit 23.1 % (37.0-47.0); Mean Corpuscular HGB Conc 34.6 g/dl (32-36); Mean Corpuscular Hemoglobin 31.6 pg (26-34); Mean Corpuscular Volume 91.3 fl (80-100); Mean Platelet Volume 9.4 fl (7.4-10.4); Platelet Count Result 108 k/mm3 (150-375); Red Blood Count 2.53 M/mm3 (4.2-5.4); Red Cell Distribution Width 17.8 % (11.5-14.5); White Blood Count 3.8 K/mm3 (4.5-10.0)
[2020-06-11 21:50] LABS: Lactate Dehydrogenase 625 U/L (313-618)
[2020-06-12] VITALS (19 sets, daily range): BP systolic 114–146; BP diastolic 58–76; PULSE 70–102; RESP 16–98; TEMP 35.8–36.4; O2SAT 96–98
[2020-06-12 06:03] LABS: Basophils Percent Auto 0.5 % (0.2-1.2); Hematocrit 23.8 % (37.0-47.0); Immature Granulocyte Absolute 0.04 K/mm3 (0.00-0.031); Lymphocytes Absolute Auto 0.91 K/mm3 (0.9-3.2); Lymphocytes Percent Auto 23.8 % (18.3-44.2); Mean Corpuscular HGB Conc 33.6 g/dl (32-36); Mean Corpuscular Hemoglobin 30.9 pg (26-34); Mean Corpuscular Volume 91.9 fl (80-100); Mean Platelet Volume 10.2 fl (7.4-10.4); Monocytes Absolute Auto 0.4 K/mm3 (0.1-0.6); Monocytes Percent Auto 9.9 % (2.6-8.5); Neutrophils Absolute Auto 2.5 K/mm3 (1.3-6.7); Neutrophils Percent Auto 64.8 % (45.5-73.1); Platelet Count Result 89 k/mm3 (150-375); Red Blood Count 2.59 M/mm3 (4.2-5.4); Red Cell Distribution Width 17.8 % (11.5-14.5); White Blood Count 3.8 K/mm3 (4.5-10.0)
[2020-06-12 06:13] LABS: Alanine Aminotransferase 40 U/L (4-35); Albumin Level 2.9 g/dL (3.5-5.1); Alkaline Phosphatase 198 U/L (38-126); Anion Gap 7 mmol/L (8-16); Aspartate Amino Transferase 38 U/L (14-36); Bilirubin,Total 0.9 mg/dL (0.2-1.3); Blood Urea Nitrogen 21 mg/dL (7-17); Carbon Dioxide 26 mmol/L (22-30); Chloride 103 mmol/L (98-107); Estimated CRCL calculation 61 ml/min; Estimated Glomerular Filt Rate > 60; Glucose 142 mg/dL (65-105); Lactate Dehydrogenase 610 U/L (313-618); Magnesium 1.7 mg/dL (1.6-2.3); Potassium 3.9 mmol/L (3.4-5.0); Sodium 136 mmol/L (137-145)
[2020-06-12] MEDS: predniSONE 20 MG TABLET 60 MG PO (07:57)
[2020-06-12] MEDS: guaiFENesin 12 HR 600 MG TABCR PO (07:58)
[2020-06-12] MEDS: THERAPEUTIC MULTIVITAMINS/MINERALS TAB (*BKC) 1 TABLET PO (07:58)
[2020-06-12] MEDS: METOPROLOL SUCCINATE EXT REL 25 MG TABCR PO ×2 (07:58→20:20)
--- NOTE | 2020-06-12 15:12 | PM.IMPN ---
Progress Note: A&P Assessment and Plan (1) Profound anemia: Code(s): D64.9 - Anemia, unspecified Status: Acute Assessment and Plan: -----acute on chronic likely due to cancer and subsequent treatment. Hemoglobin has remained stable the patient is feeling much better. No signs and symptoms of bleeding at this time. Redraw CBC tomorrow. Follow hematology's recommendations (2) Thrombocytopenia: Code(s): D69.6 - Thrombocytopenia, unspecified Status: Acute Assessment and Plan: -----likely due to chemo treatment. Patient [place] [address]. She was 8000 on admission. Will redraw tomorrow morning. Appreciate hematology's recommendations (3) Recurrent adenocarcinoma of right lung: Code(s): C34.91 - Malignant neoplasm of unspecified part of right bronchus or lung Status: Chronic Assessment and Plan: -----likely accounts for the lung exam findings but since the patient has a new cough, I will check a chest x-ray. It sounds like she has postnasal drip and clear 10 has been started. No signs and symptoms infection at this time. Patient appears euvolemic (4) Hypertension: Qualifiers: Hypertension type: unspecified Qualified Code(s): I10 - Essential (primary) hypertension Code(s): I10 - Essential (primary) hypertension Status: Chronic Assessment and Plan: -----last blood pressure 125/62. Continue metoprolol (5) Elevated LFTs: Code(s): R79.89 - Other specified abnormal findings of blood chemistry Status: Acute Assessment and Plan: -----chronic, likely due to metastatic disease. PET shows liver masses. Time Spent With Patient Time with patient: 25 - 35 minutes Subjective Date/time seen: 06/12/20 15:12 Interval history: Pt is a 74-year-old female with a known cancer and pancytopenia here for pancytopenia. Patient was seen today and doing much better. She feels great after receiving a blood transfusion. She has not had any bleeding that she knows of. She still feels short of breath when walking but this has been a chronic issue for her. She is eating and sleeping well. She does not like steroids because acute breath at night. She denies nausea vomiting fevers, chills, chest pain or shortness of breath at rest. Review of Systems Review of Systems: All systems reviewed & are unremarkable except as noted in HPI and below Exam Narrative: Exam Narrative: General: Well developed well nourished patient in NAD HEENT: normocephalic Neck: supple Neuro: Alert and oriented x4 CV:RRR Resp:CTA Abd: Soft, non distended. No pain to palpation. Positive bowel sounds Extremities: No swelling, erythema, or pain to palpation. Objective Data Vital Signs Vital Signs: Vital Signs - 24 hr 06/11/20 16:00 06/11/20 16:48 06/11/20 16:53 Temperature 97.8 F 98.3 F 98.3 F Pulse Rate 98 96 93 Respiratory Rate 18 20 20 Blood Pressure 136/70 126/63 126/63 Pulse Oximetry 98 98 98 06/11/20 17:04 06/11/20 17:08 06/11/20 17:35 Temperature 98.0 F 98.0 F 98.0 F Pulse Rate 92 92 99 Respiratory Rate 18 18 20 Blood Pressure 135/65 135/65 132/54 L Pulse Oximetry 98 98 99 06/11/20 18:00 06/11/20 18:04 06/11/20 19:05 Temperature 98.2 F 98.5 F Pulse Rate 99 102 H 106 H Respiratory Rate 20 16 Blood Pressure 157/75 H 143/64 H Pulse Oximetry 100 99 06/11/20 19:21 06/11/20 20:00 06/11/20 20:16 Temperature 98.7 F 97.3 F L Pulse Rate 110 H 113 H 109 H Respiratory Rate 18 18 Blood Pressure 162/77 H 134/72 Pulse Oximetry 99 98 06/11/20 21:27 06/11/20 22:00 06/11/20 23:32 Temperature 97 F L Pulse Rate 113 H 103 H 103 H Respiratory Rate 16 Blood Pressure 103/43 L Pulse Oximetry 95 06/12/20 00:00 06/12/20 02:00 06/12/20 04:00 Temperature 97.2 F L Pulse Rate 100 90 78 Respiratory Rate 16 Blood Pressure 114/63 Pulse Oximetry 96 10
[2020-06-13] VITALS (11 sets, daily range): BP systolic 123–146; BP diastolic 60–74; PULSE 58–93; RESP 14–20; TEMP 35.7–36.1; O2SAT 97–99
[2020-06-13 05:31] LABS: Basophils Percent Auto 0.2 % (0.2-1.2); Eosinophils Percent Auto 0.5 % (0-4.4); Hematocrit 25.1 % (37.0-47.0); Hemoglobin 8.3 g/dL (12.0-15.0); Immature Granulocyte Absolute 0.03 K/mm3 (0.00-0.031); Immature Granulocyte Percent A 0.7 % (0-0.5); Immature Platelet Fraction Pct 1.3 % (0.9-11.2); Lymphocytes Absolute Auto 1.21 K/mm3 (0.9-3.2); Lymphocytes Percent Auto 28.7 % (18.3-44.2); Mean Corpuscular HGB Conc 33.1 g/dl (32-36); Mean Corpuscular Hemoglobin 31.4 pg (26-34); Mean Corpuscular Volume 95.1 fl (80-100); Mean Platelet Volume 10.5 fl (7.4-10.4); Monocytes Absolute Auto 0.6 K/mm3 (0.1-0.6); Neutrophils Absolute Auto 2.4 K/mm3 (1.3-6.7); Neutrophils Percent Auto 55.9 % (45.5-73.1); Nucleated Red Blood Cells Absolute Auto 0.1 K/mm3 (0.0-0.012); Nucleated Red Blood Cells Perc 1.9 % (0.0-0.2); Platelet Count Result 78 k/mm3 (150-375); Red Blood Count 2.64 M/mm3 (4.2-5.4); Red Cell Distribution Width 18.5 % (11.5-14.5); White Blood Count 4.2 K/mm3 (4.5-10.0)
[2020-06-13 05:47] LABS: Anion Gap 4 mmol/L (8-16); Blood Urea Nitrogen 25 mg/dL (7-17); Carbon Dioxide 28 mmol/L (22-30); Chloride 105 mmol/L (98-107); Estimated CRCL calculation 62 ml/min; Estimated Glomerular Filt Rate > 60; Glucose 108 mg/dL (65-105); Potassium 3.8 mmol/L (3.4-5.0); Sodium 137 mmol/L (137-145)
[2020-06-13] MEDS: predniSONE 20 MG TABLET 60 MG PO (08:28)
[2020-06-13] MEDS: METOPROLOL SUCCINATE EXT REL 25 MG TABCR PO (08:28)
[2020-06-13] MEDS: guaiFENesin 12 HR 600 MG TABCR PO (08:29)
[2020-06-13] MEDS: THERAPEUTIC MULTIVITAMINS/MINERALS TAB (*BKC) 1 TABLET PO (08:29)
[2020-06-13] MEDS: LORATADINE 10 MG TABLET PO (08:29)
--- NOTE | 2020-06-13 12:24 | PM.DS ---
DS: Admitting Diagnosis Admitting Diagnosis Admitting Diagnosis: Abnormal labs. DS: Discharge Diagnosis Discharge Diagnosis (1) Profound anemia: Code(s): D64.9 - Anemia, unspecified Status: Acute Assessment and Plan: -----acute on chronic likely due to cancer and subsequent treatment. Hemoglobin has remained stable the patient is feeling much better. No signs and symptoms of bleeding at this time. Redraw CBC outpt and f/u with Dr. Sanz (2) Thrombocytopenia: Code(s): D69.6 - Thrombocytopenia, unspecified Status: Acute Assessment and Plan: -----likely due to chemo treatment. [place] [address]. She was 8000 on admission. Will redraw outpt, follow up with Dr. Sanz (3) Recurrent adenocarcinoma of right lung: Code(s): C34.91 - Malignant neoplasm of unspecified part of right bronchus or lung Status: Chronic Assessment and Plan: -----chronic. New chest x-ray reviewed and pt symptoms have improved. no signs of infection at this time. she appears euvolemic. No abx indicated. (4) Hypertension: Qualifiers: Hypertension type: unspecified Qualified Code(s): I10 - Essential (primary) hypertension Code(s): I10 - Essential (primary) hypertension Status: Chronic Assessment and Plan: -----last blood pressure 131/61 Continue metoprolol (5) Elevated LFTs: Code(s): R79.89 - Other specified abnormal findings of blood chemistry Status: Acute Assessment and Plan: -----chronic, likely due to metastatic disease. PET shows liver masses. (6) History of pulmonary embolism: Code(s): Z86.711 - Personal history of pulmonary embolism Status: Acute Assessment and Plan: -----patient had a history of PE in March of this year. she had a repeat CTA and May which did not demonstrate this. Her Lovenox has been held due to thrombocytopenia. At this time we are going to continue to hold it to see how her platelets react. If she continues to have a platelet count greater than 50,000, Dr. Sanz said they could talk about restarting the Lovenox outpatient. I spoke with the patient about this DS: Summary Hospital Course Reason for hospitalization: Abnormal labs Hospital Course: Patient is a 74-year-old female who presented emergency room for abnormal labs with a platelet count of 8000 and hemoglobin of 5.1. She was given 2 units of blood and 2 units of platelets and her hemoglobin and platelets remained stable thereafter. She had no issues with bleeding. She was monitored in the hospital for a few days with no issues. Please see above for further details. Patient was educated about the worrisome signs and symptoms come back to emergency room for was discharged stable condition. Status at Discharge Functional status at discharge: independent ambulation Overall status at discharge: patient is back to baseline Time Spent with Patient Time attestation: Total time spent providing and/or coordinating discharge services:32 min Time spent: Greater than 30 minutes Exam Narrative: Exam Narrative: General: Well developed well nourished patient in NAD HEENT: normocephalic Neck: supple Neuro: Alert and oriented x4 CV:RRR. No significant arrhythmias on telemetry Resp: Crackles to the right lung Abd: Soft, non distended. No pain to palpation. Positive bowel sounds Extremities: No swelling, erythema, or pain to palpation. DS: Data Data Completed and Pending Labs on day of discharge: Labs from last 24 hours 06/13/20 06/13/20 04:13 04:13 WBC 4.2 L RBC 2.64 L Hgb 8.3 L Hct 25.1 L MCV 95.1 MCH 31.4 MCHC 33.1 RDW 18.5 H Plt Count 78 L MPV 10.5 H Immature Gran % (Auto) 0.7 H Neut % (Auto) 55.9 Lymph % (Auto) 28.7 [place] % (Auto) 14.0 H Eos % (Auto) 0.5 Baso % (Auto) 0.2 Lymph # (Auto) 1.21 [place] # (Auto)
== END 2020-06-13 14:08 | disposition home or self-care (01) | DRG 182 ==
LOC: ANHED 11:02 → ANHIMU 11:09
PROVIDERS: Physician Assistant; Admitting Provider Internal Medicine; Emergency Provider Emergency Medicine; PCP Internal Medicine; Visit Provider Family Medicine
DX: C34.91 Malignant neoplasm of unspecified part of right bronchus or lung (principal); D63.0 Anemia in neoplastic disease; D64.81 Anemia due to antineoplastic chemotherapy; D69.59 Other secondary thrombocytopenia; T45.1X5A Adverse effect of antineoplastic and immunosuppressive drugs, initial encounter; R79.89 Other specified abnormal findings of blood chemistry; I10 Essential (primary) hypertension; E78.5 Hyperlipidemia, unspecified; Z86.711 Personal history of pulmonary embolism; Z79.01 Long term (current) use of anticoagulants; Z96.652 Presence of left artificial knee joint
CPT/HCPCS: 36415; 36430; 71046; 80048; 80053; 80076; 82607; 82728; 83540; 83550; 83615; 83735; 84443; 85025; 85027; 85046; 85055; 85610; 85730; 86850; 86900; 86901; 86923; 96361; 96374; 99285; A9270; G0378; J2930; J7050; J7512; P9016; P9034

== ENCOUNTER 2020-07-22 11:00 | Outpatient (RCR) | payer MEDICARE, SELFPAY ==
[2020-07-22] VITALS (8 sets, daily range): BP systolic 90–122; BP diastolic 44–59; PULSE 88–102; RESP 16–18; TEMP 36.6–37; O2SAT 98–100
[2020-07-22] MEDS: ACETAMINOPHEN 325 MG TABLET 650 MG PO (12:13)
[2020-07-22] MEDS: diphenhydrAMINE HCl CAP 25 MG CAPSULE PO (12:14)
[2020-07-22] MEDS: SODIUM CHLORIDE 0.9% IV 250 ML 30 ML IV CONT (12:15)
== END 2020-09-24 09:54 | disposition home or self-care (01) ==
LOC: ANHCPCTRAN 11:00
PROVIDERS: PCP Internal Medicine; Visit Provider Nurse Practitioner Adult Health
DX: D64.9 Anemia, unspecified (principal)
CPT/HCPCS: 36415; 36430; 86850; 86900; 86901; 86923; A9270; J7050; P9016

== ENCOUNTER 2020-08-04 09:00 | Outpatient (RCR) | payer MEDICARE, SELFPAY ==
[2020-06-11 09:23] LABS: Basophils Percent Auto 0.2 % (0.2-1.2); Eosinophils Absolute Auto 0.1 K/mm3 (0-0.3); Immature Granulocyte Absolute 0.05 K/mm3 (0.00-0.031); Immature Platelet Fraction Pct 8.5 % (0.9-11.2); Lymphocytes Absolute Auto 1.56 K/mm3 (0.9-3.2); Lymphocytes Percent Auto 31.1 % (18.3-44.2); Mean Corpuscular HGB Conc 32.1 g/dl (32-36); Mean Corpuscular Hemoglobin 31.7 pg (26-34); Mean Corpuscular Volume 98.8 fl (80-100); Mean Platelet Volume 12.6 fl (7.4-10.4); Monocytes Absolute Auto 0.6 K/mm3 (0.1-0.6); Monocytes Percent Auto 12.4 % (2.6-8.5); Neutrophils Absolute Auto 2.7 K/mm3 (1.3-6.7); Neutrophils Percent Auto 53.3 % (45.5-73.1); Nucleated Red Blood Cells Absolute Auto 0.1 K/mm3 (0.0-0.012); Red Blood Count 1.61 M/mm3 (4.2-5.4); Red Cell Distribution Width 21.5 % (11.5-14.5)
[2020-06-11 09:26] LABS: Blood Urea Nitrogen 14 mg/dL (8-26); Carbon Dioxide 23 mmol/L (22-30); Chloride 100 mmol/L (98-109); Estimated CRCL calculation 49 ml/min; Estimated Glomerular Filt Rate > 60; Glucose 106 mg/dL (70-105); Potassium 3.9 mmol/L (3.5-4.9); Sodium 137 mmol/L (138-146)
[2020-06-11 09:28] LABS: Hematocrit 15.9 % (37.0-47.0); Hemoglobin 5.1 g/dL (12.0-15.0); Platelet Count Result 8 k/mm3 (150-375)
[2020-06-11 11:15] LABS: Alanine Aminotransferase 43 U/L (4-35); Albumin Level 2.8 g/dL (3.5-5.1); Alkaline Phosphatase 229 U/L (38-126); Anion Gap 8 mmol/L (8-16); Aspartate Amino Transferase 43 U/L (14-36); Bilirubin,Total 0.7 mg/dL (0.2-1.3); Blood Urea Nitrogen 14 mg/dL (7-17); Calcium 8.5 mg/dL (8.4-10.2); Carbon Dioxide 26 mmol/L (22-30); Chloride 102 mmol/L (98-107); Estimated CRCL calculation 55 ml/min; Estimated Glomerular Filt Rate > 60; Glucose 104 mg/dL (65-105); Potassium 3.9 mmol/L (3.4-5.0); Sodium 136 mmol/L (137-145)
[2020-06-11 11:24] LABS: Immature Reticulocyte Fraction 24.3 % (3.0-15.9); Reticulocyte Hemoglobin Conten 36.3 pg (28.2-35.7); Reticulocyte Percent 2.89 % (0.7-4.3); Reticulocytes Absolute 0.05 B/L (32.2-175.7)
[2020-06-11 13:28] LABS: Iron 88 ug/dL (37-170)
[2020-06-11 13:37] LABS: Percent Iron Saturation 44 % (20-50)
[2020-06-11 13:46] LABS: Lactate Dehydrogenase 583 U/L (313-618)
[2020-06-11 14:43] LABS: Vitamin B12 > 1000.0 pg/mL (239-931)
[2020-06-17 08:30] LABS: Basophils Percent Auto 0.2 % (0.2-1.2); Eosinophils Percent Auto 0.6 % (0-4.4); Hematocrit 26.2 % (37.0-47.0); Hemoglobin 8.6 g/dL (12.0-15.0); Immature Granulocyte Absolute 0.19 K/mm3 (0.00-0.031); Immature Platelet Fraction Pct 3.3 % (0.9-11.2); Lymphocytes Absolute Auto 2.03 K/mm3 (0.9-3.2); Lymphocytes Percent Auto 32.1 % (18.3-44.2); Mean Corpuscular HGB Conc 32.8 g/dl (32-36); Mean Corpuscular Hemoglobin 31.3 pg (26-34); Mean Corpuscular Volume 95.3 fl (80-100); Mean Platelet Volume 10.7 fl (7.4-10.4); Monocytes Absolute Auto 0.8 K/mm3 (0.1-0.6); Monocytes Percent Auto 13.3 % (2.6-8.5); Neutrophils Absolute Auto 3.2 K/mm3 (1.3-6.7); Neutrophils Percent Auto 50.8 % (45.5-73.1); Nucleated Red Blood Cells Absolute Auto 0.1 K/mm3 (0.0-0.012); Nucleated Red Blood Cells Perc 1.4 % (0.0-0.2); Platelet Count Result 27 k/mm3 (150-375); Red Blood Count 2.75 M/mm3 (4.2-5.4); Red Cell Distribution Width 18.8 % (11.5-14.5); White Blood Count 6.3 K/mm3 (4.5-10.0)
[2020-06-17 08:31] LABS: Blood Urea Nitrogen 22 mg/dL (8-26); Carbon Dioxide 27 mmol/L (22-30); Chloride 101 mmol/L (98-109); Estimated CRCL calculation 55 ml/min; Estimated Glomerular Filt Rate > 60; Glucose 81 mg/dL (70-105); Potassium 3.7 mmol/L (3.5-4.9); Sodium 139 mmol/L (138-146)
--- NOTE | 2020-06-17 11:03 | PC.NURSE ---
Patient's treatment cancelled due to low platelet count-patient started on new medication to increase platelets.
[2020-06-17 12:11] LABS: Alanine Aminotransferase 138 U/L (4-35); Albumin Level 2.9 g/dL (3.5-5.1); Alkaline Phosphatase 291 U/L (38-126); Anion Gap 6 mmol/L (8-16); Aspartate Amino Transferase 76 U/L (14-36); Bilirubin,Total 0.6 mg/dL (0.2-1.3); Blood Urea Nitrogen 24 mg/dL (7-17); Carbon Dioxide 30 mmol/L (22-30); Chloride 102 mmol/L (98-107); Estimated CRCL calculation 55 ml/min; Estimated Glomerular Filt Rate > 60; Glucose 82 mg/dL (65-105); Potassium 3.8 mmol/L (3.4-5.0); Sodium 138 mmol/L (137-145)
[2020-06-24 08:38] LABS: Basophils Percent Auto 0.2 % (0.2-1.2); Eosinophils Percent Auto 0.1 % (0-4.4); Hematocrit 25.9 % (37.0-47.0); Hemoglobin 8.5 g/dL (12.0-15.0); Immature Granulocyte Absolute 0.22 K/mm3 (0.00-0.031); Immature Granulocyte Percent A 1.8 % (0-0.5); Immature Platelet Fraction Pct 9.4 % (0.9-11.2); Lymphocytes Absolute Auto 2.82 K/mm3 (0.9-3.2); Mean Corpuscular HGB Conc 32.8 g/dl (32-36); Mean Corpuscular Hemoglobin 31.5 pg (26-34); Mean Corpuscular Volume 95.9 fl (80-100); Mean Platelet Volume 12.4 fl (7.4-10.4); Monocytes Absolute Auto 1.1 K/mm3 (0.1-0.6); Monocytes Percent Auto 8.7 % (2.6-8.5); Neutrophils Absolute Auto 8.1 K/mm3 (1.3-6.7); Neutrophils Percent Auto 66.2 % (45.5-73.1); Nucleated Red Blood Cells Absolute Auto 0.1 K/mm3 (0.0-0.012); Nucleated Red Blood Cells Perc 1.1 % (0.0-0.2); Red Cell Distribution Width 20.7 % (11.5-14.5); White Blood Count 12.3 K/mm3 (4.5-10.0)
[2020-06-24 08:39] LABS: Platelet Count Result 15 k/mm3 (150-375)
[2020-06-24 09:18] VITALS: BP 137/65; PULSE 78; RESP 16; TEMP 36.5; O2SAT 98
[2020-06-24] MEDS: EPOETIN ALFA-EPBX 10,000 UNITS/ML VIAL 20000 UNITS SUB-Q (09:32)
[2020-06-24 09:39] LABS: Blood Urea Nitrogen 27 mg/dL (8-26); Carbon Dioxide 26 mmol/L (22-30); Chloride 101 mmol/L (98-109); Estimated CRCL calculation 49 ml/min; Estimated Glomerular Filt Rate > 60; Glucose 109 mg/dL (70-105); Potassium 3.8 mmol/L (3.5-4.9); Sodium 138 mmol/L (138-146)
[2020-06-24 12:18] LABS: Alanine Aminotransferase 173 U/L (4-35); Alkaline Phosphatase 300 U/L (38-126); Anion Gap 4 mmol/L (8-16); Aspartate Amino Transferase 91 U/L (14-36); Bilirubin,Total 0.7 mg/dL (0.2-1.3); Blood Urea Nitrogen 31 mg/dL (7-17); Calcium 8.8 mg/dL (8.4-10.2); Carbon Dioxide 28 mmol/L (22-30); Chloride 102 mmol/L (98-107); Estimated CRCL calculation 49 ml/min; Estimated Glomerular Filt Rate > 60; Glucose 107 mg/dL (65-105); Potassium 3.9 mmol/L (3.4-5.0); Sodium 134 mmol/L (137-145)
[2020-07-08 08:38] LABS: Basophils Percent Auto 0.1 % (0.2-1.2); Eosinophils Absolute Auto 0.1 K/mm3 (0-0.3); Eosinophils Percent Auto 0.4 % (0-4.4); Hematocrit 23.3 % (37.0-47.0); Hemoglobin 7.5 g/dL (12.0-15.0); Immature Granulocyte Absolute 0.35 K/mm3 (0.00-0.031); Lymphocytes Absolute Auto 3.41 K/mm3 (0.9-3.2); Lymphocytes Percent Auto 29.7 % (18.3-44.2); Mean Corpuscular HGB Conc 32.2 g/dl (32-36); Mean Corpuscular Hemoglobin 32.6 pg (26-34); Mean Corpuscular Volume 101.3 fl (80-100); Mean Platelet Volume 13.5 fl (7.4-10.4); Monocytes Absolute Auto 0.8 K/mm3 (0.1-0.6); Monocytes Percent Auto 7.1 % (2.6-8.5); Neutrophils Absolute Auto 6.9 K/mm3 (1.3-6.7); Neutrophils Percent Auto 59.7 % (45.5-73.1); Nucleated Red Blood Cells Absolute Auto 0.2 K/mm3 (0.0-0.012); Nucleated Red Blood Cells Perc 1.8 % (0.0-0.2); White Blood Count 11.5 K/mm3 (4.5-10.0)
[2020-07-08 08:43] LABS: Blood Urea Nitrogen 23 mg/dL (8-26); Carbon Dioxide 25 mmol/L (22-30); Chloride 99 mmol/L (98-109); Estimated CRCL calculation 45 ml/min; Estimated Glomerular Filt Rate 54; Glucose 154 mg/dL (70-105); Potassium 3.8 mmol/L (3.5-4.9); Sodium 136 mmol/L (138-146)
[2020-07-08 08:45] LABS: Platelet Count Result 21 k/mm3 (150-375)
[2020-07-08 10:11] VITALS: PULSE 85; RESP 16; TEMP 36; O2SAT 97
[2020-07-08 10:15] VITALS: BP 124/64
[2020-07-08] MEDS: EPOETIN ALFA-EPBX 10,000 UNITS/ML VIAL 20000 UNITS SUB-Q (10:20)
[2020-07-08 12:41] LABS: Alanine Aminotransferase 113 U/L (4-35); Alkaline Phosphatase 278 U/L (38-126); Anion Gap 6 mmol/L (8-16); Aspartate Amino Transferase 61 U/L (14-36); Bilirubin,Total 0.9 mg/dL (0.2-1.3); Blood Urea Nitrogen 27 mg/dL (7-17); Calcium 8.9 mg/dL (8.4-10.2); Carbon Dioxide 29 mmol/L (22-30); Chloride 99 mmol/L (98-107); Estimated CRCL calculation 49 ml/min; Estimated Glomerular Filt Rate > 60; Glucose 153 mg/dL (65-105); Potassium 3.9 mmol/L (3.4-5.0); Sodium 134 mmol/L (137-145)
[2020-07-22 08:39] LABS: Basophils Percent Auto 0.3 % (0.2-1.2); Eosinophils Percent Auto 0.2 % (0-4.4); Hematocrit 16.6 % (37.0-47.0); Hemoglobin 5.3 g/dL (12.0-15.0); Immature Granulocyte Absolute 0.21 K/mm3 (0.00-0.031); Immature Granulocyte Percent A 1.8 % (0-0.5); Immature Platelet Fraction Pct 10.5 % (0.9-11.2); Lymphocytes Percent Auto 16.6 % (18.3-44.2); Mean Corpuscular HGB Conc 31.9 g/dl (32-36); Mean Corpuscular Hemoglobin 34.4 pg (26-34); Mean Corpuscular Volume 107.8 fl (80-100); Mean Platelet Volume 13.1 fl (7.4-10.4); Monocytes Percent Auto 8.6 % (2.6-8.5); Neutrophils Absolute Auto 8.3 K/mm3 (1.3-6.7); Neutrophils Percent Auto 72.5 % (45.5-73.1); Nucleated Red Blood Cells Absolute Auto 0.2 K/mm3 (0.0-0.012); Nucleated Red Blood Cells Perc 1.9 % (0.0-0.2); Platelet Count Result 21 k/mm3 (150-375); Red Blood Count 1.54 M/mm3 (4.2-5.4); Red Cell Distribution Width 28.9 % (11.5-14.5); White Blood Count 11.4 K/mm3 (4.5-10.0)
[2020-07-22 08:39] LABS: Blood Urea Nitrogen 19 mg/dL (8-26); Carbon Dioxide 22 mmol/L (22-30); Chloride 98 mmol/L (98-109); Estimated CRCL calculation 41 ml/min; Estimated Glomerular Filt Rate 49; Glucose 135 mg/dL (70-105); Sodium 134 mmol/L (138-146)
[2020-07-22 08:41] LABS: Anisocytosis 1+ (NORMAL); Hypochromasia 1+ (NORMAL); Platelet Estimate Decreased (Adequate)
--- NOTE | 2020-07-22 09:27 | PC.NURSE ---
Hold Opdivo, patient to have injection per Dr Sanz.
[2020-07-22 09:55] VITALS: BP 94/45; PULSE 64; RESP 16; TEMP 36.8; O2SAT 94
[2020-07-22] MEDS: EPOETIN ALFA-EPBX 10,000 UNITS/ML VIAL 20000 UNITS SUB-Q (10:02)
[2020-07-22 11:01] LABS: Alanine Aminotransferase 45 U/L (4-35); Alkaline Phosphatase 246 U/L (38-126); Anion Gap 12 mmol/L (8-16); Aspartate Amino Transferase 51 U/L (14-36); Bilirubin,Total 1.3 mg/dL (0.2-1.3); Blood Urea Nitrogen 20 mg/dL (7-17); Calcium 8.6 mg/dL (8.4-10.2); Carbon Dioxide 23 mmol/L (22-30); Chloride 100 mmol/L (98-107); Estimated CRCL calculation 41 ml/min; Estimated Glomerular Filt Rate 49; Glucose 133 mg/dL (65-105); Potassium 4.3 mmol/L (3.4-5.0); Sodium 135 mmol/L (137-145)
[2020-08-04 08:32] LABS: Blood Urea Nitrogen 10 mg/dL (8-26); Carbon Dioxide 31 mmol/L (22-30); Chloride 96 mmol/L (98-109); Estimated CRCL calculation 62 ml/min; Estimated Glomerular Filt Rate > 60; Glucose 100 mg/dL (70-105); Potassium 3.8 mmol/L (3.5-4.9); Sodium 136 mmol/L (138-146)
[2020-08-04 08:33] LABS: Immature Platelet Fraction Pct 11.8 % (0.9-11.2); Mean Corpuscular HGB Conc 30.5 g/dl (32-36); Mean Corpuscular Hemoglobin 31.6 pg (26-34); Mean Corpuscular Volume 103.7 fl (80-100); Red Cell Distribution Width 26.9 % (11.5-14.5)
[2020-08-04 08:35] LABS: Hematocrit 19.7 % (37.0-47.0); Platelet Count Result 18 k/mm3 (150-375)
[2020-08-04 08:40] LABS: Band Neutrophils Percent 13 % (0-6); Crenated RBC 2+ (NORMAL); Hypochromasia 2+ (NORMAL); Lymphocytes Absolute Manual 0.64 K/mm3 (1.1-4.5); Metamyelocytes Percent 1 %; Monocytes Percent Manual 10 % (3-9); Neutrophils Absolute Manual 6.48 K/mm3 (1.7-7.2); Neutrophils Percent Manual 68 % (46-73); Platelet Estimate Decreased (Adequate); Total Cells Counted 100
[2020-08-04 08:41] LABS: Poikilocytosis 2+ (NORMAL)
[2020-08-04 09:25] VITALS: BP 125/59; PULSE 85; RESP 16; TEMP 36.8; O2SAT 99
[2020-08-04] MEDS: EPOETIN ALFA-EPBX 10,000 UNITS/ML VIAL 20000 UNITS SUB-Q (09:29)
[2020-08-04 09:32] LABS: Alanine Aminotransferase 51 U/L (4-35); Albumin Level 2.8 g/dL (3.5-5.1); Alkaline Phosphatase 326 U/L (38-126); Anion Gap 5 mmol/L (8-16); Aspartate Amino Transferase 52 U/L (14-36); Bilirubin,Total 1.1 mg/dL (0.2-1.3); Blood Urea Nitrogen 13 mg/dL (7-17); Calcium 8.8 mg/dL (8.4-10.2); Carbon Dioxide 34 mmol/L (22-30); Chloride 98 mmol/L (98-107); Estimated CRCL calculation 72 ml/min; Estimated Glomerular Filt Rate > 60; Glucose 100 mg/dL (65-105); Potassium 4.1 mmol/L (3.4-5.0); Sodium 137 mmol/L (137-145)
== END 2020-08-16 14:50 | disposition hospice, home (50) ==
LOC: AMCINF 09:00
PROVIDERS: PCP Internal Medicine; Visit Provider Internal Medicine Hematology & Oncology
DX: C34.31 Malignant neoplasm of lower lobe, right bronchus or lung (principal); C34.92 Malignant neoplasm of unspecified part of left bronchus or lung; D64.9 Anemia, unspecified; D69.6 Thrombocytopenia, unspecified; I10 Essential (primary) hypertension; I26.99 Other pulmonary embolism without acute cor pulmonale; J18.9 Pneumonia, unspecified organism; J96.00 Acute respiratory failure, unspecified whether with hypoxia or hypercapnia; E78.5 Hyperlipidemia, unspecified; R53.83 Other fatigue; M62.838 Other muscle spasm; Z86.711 Personal history of pulmonary embolism; Z90.2 Acquired absence of lung [part of]; Z92.21 Personal history of antineoplastic chemotherapy
CPT/HCPCS: 36415; 36430; 80048; 80053; 82607; 82728; 83540; 83550; 83615; 84443; 85025; 85046; 85055; 86850; 86900; 86901; 86923; 96372; A9270; J7050; P9016; Q5106